=== PATIENT | male | born 1970 | race African-American/Black ===

== ENCOUNTER 2016-09-17 17:01 | Inpatient (IN) | payer OTHER ==
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
[2016-09-17] MEDS ORDERED: MAGNESIUM HYDROX 2400MG/30ML ORAL SUSPENSION 30 ML CUP PO PRN (18:32)
[2016-09-17] MEDS ORDERED: guaiFENesin/D-METHORPHAN HB 10 ML UNIT-DOSE CUPS PO PRN (18:32)
[2016-09-17] MEDS ORDERED: hydrOXYzine PAMOATE 50 MG CAPSULE (FP) PO PRN (18:32)
[2016-09-17] MEDS ORDERED: IBUPROFEN 400 MG TABLET (FP) PO PRN (18:32)
[2016-09-17] MEDS ORDERED: MAG HYDROX/AL HYDROX/SIMETH 30 ML UNIT-DOSE CUP PO PRN (18:32)
[2016-09-17] MEDS ORDERED: ACETAMINOPHEN 325 MG TABLET (FP) PO PRN (18:32)
[2016-09-17] MEDS ORDERED: P-EPHED 60MG/TRIPROLIDI 2.5MG TABLET PO PRN (18:32)
[2016-09-17] MEDS ORDERED: NICOTINE POLACRILEX 2 MG GUM BC PRN (18:32)
[2016-09-17] MEDS ORDERED: NICOTINE 14 MG/24 HOURS TOPICAL PATCH TD PRN (18:32)
[2016-09-17] MEDS ORDERED: MAGNESIUM CITRATE 300 ML BOTTLE PO PRN (18:32)
[2016-09-17] MEDS ORDERED: LOPERAMIDE HCL 2 MG CAPSULE PO PRN (18:32)
[2016-09-17] MEDS ORDERED: chlordiazePOXIDE HCL 25 MG CAPSULE PO PRN (18:32)
[2016-09-17] MEDS ORDERED: MENTHOL/PHENOL 1 EACH UD MM PRN (18:32)
[2016-09-17 18:35] VITALS: BMI 28.0
[2016-09-17] MEDS: THIAMINE HCL 100 MG TABLET (FP) PO SCH (22:40)
[2016-09-17] MEDS: diphenhydrAMINE HCL 50 MG CAPSULE PO PRN (22:41)
[2016-09-17] MEDS: chlordiazePOXIDE HCL 25 MG CAPSULE PO SCH (22:41)
[2016-09-18 05:29] LABS: URINE APPEARANCE CLEAR; URINE BILIRUBIN NEGATIVE (NEGATIVE); URINE BLOOD NEGATIVE (NEGATIVE); URINE COLOR LTYELLOW; URINE GLUCOSE (UA) NEGATIVE (NEGATIVE); URINE KETONE NEGATIVE (NEGATIVE); URINE LEUK ESTERASE NEGATIVE (NEGATIVE); URINE NITRITE NEGATIVE (NEGATIVE); URINE PROTEIN NEGATIVE (NEGATIVE); URINE UROBILINOGEN NEGATIVE E.U./dl (0.2-1.0)
[2016-09-18] MEDS: chlordiazePOXIDE HCL 25 MG CAPSULE PO SCH ×3 (05:37→17:33)
[2016-09-18] MEDS: PRENATAL VITAMINS W/ FOLIC ACID TABLET (FP) PO SCH (10:30)
[2016-09-18 10:36] LABS: MCH 28.7 pg (25.7-33.7); MCHC 33.2 g/dl (32.0-35.9); MEAN CELL VOLUME 86.6 fl (80-96); MEAN PLT VOLUME 8.8 fl (7.5-11.1); PLATELET COUNT 237 K/MM3 (134-434); RDW 13.8 % (11.9-15.9); WHITE BLOOD COUNT 5.7 K/mm3 (4.0-10.0)
--- NOTE | 2016-09-18 11:22 | PN ---
S CIWA - CIWA Score Nausea/Vomitin-Mild Nausea/No Vomiting Muscle Tremors: 2 Anxiety: 3 Agitation: 4-Moderately Restless Paroxysmal Sweats: No Perspiration Orientation: 0-Oriented Tacttile Disturbances: 1-Very Mild Itch/Numbness Auditory Disturbances: 2-Mild Harshness/Frighten Visual Disturbances: 0-None Headache: 2-Mild CIWA-Ar Total Score: 15 BHS Progress Note (SOAP) Objective: 09/18/16 11:21 Laboratory Tests 09/17/16 09/18/16 09/18/16 22:13 08:00 08:00 WBC 5.7 RBC 5.06 Hgb 14.5 Hct 43.8 MCV 86.6 MCHC 33.2 RDW 13.8 Plt Count 237 MPV 8.8 Sodium 139 Potassium 3.9 Chloride 104 Urine Color Ltyellow Urine Appearance Clear Urine pH 5.0 Ur Specific [place] 1.023 Urine Protein Negative Urine Glucose (UA) Negative Urine Ketones Negative Urine Blood Negative Urine Nitrite Negative Urine Bilirubin Negative Urine Urobilinogen Negative Ur Leukocyte Esterase Negative Vital Signs - 24 hr 09/17/16 09/17/16 09/17/16 18:30 18:37 22:08 Temperature 97.4 F L 97.4 F L 97.6 F Pulse Rate 93 H 93 H 73 Respiratory 20 20 18 Rate Blood Pressure 123/66 123/66 122/76 09/18/16 09/18/16 09/18/16 00:26 03:30 06:32 Temperature 97.4 F L Pulse Rate 79 79 Respiratory 18 16 16 Rate Blood Pressure 117/76 09/18/16 09:35 Temperature 96.7 F L Pulse Rate 78 Respiratory 18 Rate Blood Pressure 117/77 Assessment: 09/18/16 11:22 ongoing withdrawal Plan: continue detox protocol
[2016-09-18 11:39] LABS: ALBUMIN 3.5 g/dl (3.4-5.0); ALK PHOS 55 U/L (45-117); ANION GAP 7 (8-16); BILIRUBIN,TOTAL 0.7 mg/dL (0.2-1.0); CALCIUM 9.5 mg/dL (8.5-10.1); CO2 28 mmol/L (21-32); CREATININE 1.1 mg/dL (0.7-1.3); GLUCOSE,RANDOM 85 mg/dL (74-106); SGOT/AST 14 U/L (15-37); SGPT/ALT 21 U/L (12-78); TOT PROT 6.8 g/dl (6.4-8.2)
--- NOTE | 2016-09-18 16:19 | EKG ---
Test Reason : Blood Pressure : / mmHG Vent. Rate : 064 BPM Atrial Rate : 064 BPM P-R Int : 140 ms QRS Dur : 090 ms QT Int : 374 ms P-R-T Axes : 065 070 025 degrees QTc Int : 385 ms NORMAL SINUS RHYTHM NORMAL ECG NO PREVIOUS ECGS AVAILABLE Confirmed by JOMAR MONK MD ([id number]) on 09/18/2016 4:19:32 PM Referred By: Confirmed By:JOMAR MONK MD
[2016-09-18] MEDS: chlordiazePOXIDE 5 MG CAPSULE PO SCH (22:42)
[2016-09-18] MEDS: THIAMINE HCL 100 MG TABLET (FP) PO SCH (22:42)
[2016-09-18] MEDS: diphenhydrAMINE HCL 50 MG CAPSULE PO PRN (22:43)
[2016-09-19] MEDS: chlordiazePOXIDE 5 MG CAPSULE PO SCH ×3 (05:53→17:12)
[2016-09-19] MEDS: PRENATAL VITAMINS W/ FOLIC ACID TABLET (FP) PO SCH (10:44)
--- NOTE | 2016-09-19 14:50 | PN ---
S CIWA - CIWA Score Nausea/Vomitin-Mild Nausea/No Vomiting Muscle Tremors: 3 Anxiety: 4-Mod. Anxious/Guarded Agitation: 4-Moderately Restless Paroxysmal Sweats: No Perspiration Orientation: 0-Oriented Tacttile Disturbances: 0-None Auditory Disturbances: 0-None Visual Disturbances: 0-None Headache: 2-Mild CIWA-Ar Total Score: 14 BHS Progress Note (SOAP) Subjective: Anxious, tremor, sweating, restless Objective: 09/19/16 14:49 Last Vital Signs Temp Pulse Resp BP Pulse Ox 97.0 F L 92 H 20 100/67 09/19/16 13:38 09/19/16 13:38 09/19/16 13:38 09/19/16 13:38 Laboratory Tests 09/17/16 09/18/16 09/18/16 22:13 08:00 08:00 WBC 5.7 RBC 5.06 Hgb 14.5 Hct 43.8 MCV 86.6 MCHC 33.2 RDW 13.8 Plt Count 237 MPV 8.8 Sodium 139 Potassium 3.9 Chloride 104 Carbon Dioxide 28 Anion Gap 7 L BUN 13 Creatinine 1.1 Creat Clearance w eGFR > 60 Random Glucose 85 Calcium 9.5 Total Bilirubin 0.7 AST 14 L ALT 21 D Alkaline Phosphatase 55 Total Protein 6.8 Albumin 3.5 Urine Color Ltyellow Urine Appearance Clear Urine pH 5.0 Ur Specific [place] 1.023 Urine Protein Negative Urine Glucose (UA) Negative Urine Ketones Negative Urine Blood Negative Urine Nitrite Negative Urine Bilirubin Negative Urine Urobilinogen Negative Ur Leukocyte Esterase Negative RPR Titer 09/18/16 08:00 WBC RBC Hgb Hct MCV MCHC RDW Plt Count MPV Sodium Potassium Chloride Carbon Dioxide Anion Gap BUN Creatinine Creat Clearance w eGFR Random Glucose Calcium Total Bilirubin AST ALT Alkaline Phosphatase Total Protein Albumin Urine Color Urine Appearance Urine pH Ur Specific [place] Urine Protein Urine Glucose (UA) Urine Ketones Urine Blood Urine Nitrite Urine Bilirubin Urine Urobilinogen Ur Leukocyte Esterase RPR Titer Nonreactive Labs noted Assessment: 09/19/16 14:50 Withdrawal symptoms Plan: Continue detox
[2016-09-19] MEDS: chlordiazePOXIDE HCL 10 MG CAPSULE PO SCH (22:52)
[2016-09-19] MEDS: THIAMINE HCL 100 MG TABLET (FP) PO SCH (22:52)
[2016-09-19] MEDS: diphenhydrAMINE HCL 50 MG CAPSULE PO PRN (22:54)
[2016-09-20] MEDS: chlordiazePOXIDE HCL 10 MG CAPSULE PO SCH ×3 (05:25→17:34)
[2016-09-20] MEDS: PRENATAL VITAMINS W/ FOLIC ACID TABLET (FP) PO SCH (10:46)
--- NOTE | 2016-09-20 11:40 | PN ---
BHS Progress Note (SOAP) Subjective: SWEATING,INTERRUPTED SLEEP,RESTLESS. Objective: 09/20/16 11:39 Vital Signs - 8 hr 09/20/16 09/20/16 06:39 10:25 Temperature 98.0 F 96.7 F L Pulse Rate 76 78 Respiratory 18 18 Rate Blood Pressure 110/80 123/60 Laboratory Tests 09/17/16 09/18/16 09/18/16 22:13 08:00 08:00 WBC 5.7 RBC 5.06 Hgb 14.5 Hct 43.8 MCV 86.6 MCHC 33.2 RDW 13.8 Plt Count 237 MPV 8.8 Sodium 139 Potassium 3.9 Chloride 104 Carbon Dioxide 28 Anion Gap 7 L BUN 13 Creatinine 1.1 Creat Clearance w eGFR > 60 Random Glucose 85 Calcium 9.5 Total Bilirubin 0.7 AST 14 L ALT 21 D Alkaline Phosphatase 55 Total Protein 6.8 Albumin 3.5 Urine Color Ltyellow Urine Appearance Clear Urine pH 5.0 Ur Specific [place] 1.023 Urine Protein Negative Urine Glucose (UA) Negative Urine Ketones Negative Urine Blood Negative Urine Nitrite Negative Urine Bilirubin Negative Urine Urobilinogen Negative Ur Leukocyte Esterase Negative RPR Titer 09/18/16 08:00 WBC RBC Hgb Hct MCV MCHC RDW Plt Count MPV Sodium Potassium Chloride Carbon Dioxide Anion Gap BUN Creatinine Creat Clearance w eGFR Random Glucose Calcium Total Bilirubin AST ALT Alkaline Phosphatase Total Protein Albumin Urine Color Urine Appearance Urine pH Ur Specific [place] Urine Protein Urine Glucose (UA) Urine Ketones Urine Blood Urine Nitrite Urine Bilirubin Urine Urobilinogen Ur Leukocyte Esterase RPR Titer Nonreactive LABS NOTED Assessment: 09/20/16 11:40 WITHDRAWAL SX. Plan: CONTINUE DETOX
[2016-09-20 11:58] LABS: HIV 1 & 2 AB NEGATIVE; HIV 1 AGp24 NEGATIVE
[2016-09-20] MEDS: diphenhydrAMINE HCL 50 MG CAPSULE PO PRN (22:04)
[2016-09-20] MEDS: THIAMINE HCL 100 MG TABLET (FP) PO SCH (22:04)
[2016-09-21 09:25] VITALS: BP 125/84; PULSE 88; TEMP 95.8
--- NOTE | 2016-09-21 10:56 | DS ---
[facility] Detox Discharge Summary Admission Date: 09/17/16 Discharge Date: 09/21/16 - History Present History: Alcohol Dependence, Cocaine Dependence Pertinent Past History: NARCOLEPSY - Physical Exam Results Vital Signs: Vital Signs Temperature 95.8 F L 09/21/16 09:23 Pulse Rate 88 09/21/16 09:23 Respiratory Rate 18 09/21/16 09:23 Blood Pressure 125/84 09/21/16 09:23 O2 Sat by Pulse Oximetry (%) Pertinent Admission Physical Exam Findings: WITHDRAWAL SX. Laboratory Last Values WBC 5.7 K/mm3 (4.0-10.0) 09/18/16 08:00 RBC 5.06 M/mm3 (4.00-5.60) 09/18/16 08:00 Hgb 14.5 GM/dL (11.7-16.9) 09/18/16 08:00 Hct 43.8 % (35.4-49) 09/18/16 08:00 MCV 86.6 fl (80-96) 09/18/16 08:00 MCHC 33.2 g/dl (32.0-35.9) 09/18/16 08:00 RDW 13.8 % (11.9-15.9) 09/18/16 08:00 Plt Count 237 K/MM3 (134-434) 09/18/16 08:00 MPV 8.8 fl (7.5-11.1) 09/18/16 08:00 Sodium 139 mmol/L (136-145) 09/18/16 08:00 Potassium 3.9 mmol/L (3.5-5.1) 09/18/16 08:00 Chloride 104 mmol/L (98-107) 09/18/16 08:00 Carbon Dioxide 28 mmol/L (21-32) 09/18/16 08:00 Anion Gap 7 (8-16) L 09/18/16 08:00 BUN 13 mg/dL (7-18) 09/18/16 08:00 Creatinine 1.1 mg/dL (0.7-1.3) 09/18/16 08:00 Creat Clearance w eGFR > 60 (>60) 09/18/16 08:00 Random Glucose 85 mg/dL (74-106) 09/18/16 08:00 Calcium 9.5 mg/dL (8.5-10.1) 09/18/16 08:00 Total Bilirubin 0.7 mg/dL (0.2-1.0) 09/18/16 08:00 AST 14 U/L (15-37) L 09/18/16 08:00 ALT 21 U/L (12-78) D 09/18/16 08:00 Alkaline Phosphatase 55 U/L (45-117) 09/18/16 08:00 Total Protein 6.8 g/dl (6.4-8.2) 09/18/16 08:00 Albumin 3.5 g/dl (3.4-5.0) 09/18/16 08:00 Urine Color Ltyellow 09/17/16 22:13 Urine Appearance Clear 09/17/16 22:13 Urine pH 5.0 (5.0-8.0) 09/17/16 22:13 Ur Specific [place] 1.023 (1.001-1.035) 09/17/16 22:13 Urine Protein Negative (NEGATIVE) 09/17/16 22:13 Urine Glucose (UA) Negative (NEGATIVE) 09/17/16 22:13 Urine Ketones Negative (NEGATIVE) 09/17/16 22:13 Urine Blood Negative (NEGATIVE) 09/17/16 22:13 Urine Nitrite Negative (NEGATIVE) 09/17/16 22:13 Urine Bilirubin Negative (NEGATIVE) 09/17/16 22:13 Urine Urobilinogen Negative E.U./dl (0.2-1.0) 09/17/16 22:13 Ur Leukocyte Esterase Negative (NEGATIVE) 09/17/16 22:13 RPR Titer Nonreactive (NONREACTIVE) 09/18/16 08:00 HIV 1&2 Antibody Screen Negative 09/20/16 08:00 HIV P24 Antigen Negative 09/20/16 08:00 LABS NOTED - Treatment Hospital Course: Detox Protocol Followed, Detoxed Safely, Responded well, Discharged Condition Good, Rehab Referral Accepted - Medication Discharge Medications: Ambulatory Orders Armodafinil [Nuvigil] 200 mg PO DAILY 08/12/16 - Diagnosis (1) Alcohol dependence with uncomplicated withdrawal Current Visit: Yes Status: Acute (2) Nicotine dependence Current Visit: Yes Status: Acute Qualifiers: Nicotine product type: cigarettes Substance use status: uncomplicated Qualified Code(s): F17.210 - Nicotine dependence, cigarettes, uncomplicated (3) Cocaine dependence, uncomplicated Current Visit: Yes Status: Acute (4) Narcolepsy Current Visit: Yes Status: Chronic - AMA Did Patient Leave Against Medical Advice: No
== END 2016-09-21 10:51 | disposition home or self-care (01) | DRG 774 ==
LOC: YASAS 17:01 → Y3N 18:33
PROVIDERS: ADMIT Internal Medicine; ATTEND Internal Medicine
PROC: HZ2ZZZZ Detoxification Services for Substance Abuse Treatment (ICD-10-PCS; principal; 2016-09-17)
DX: F10.230 Alcohol dependence with withdrawal, uncomplicated (principal); F14.20 Cocaine dependence, uncomplicated; F17.210 Nicotine dependence, cigarettes, uncomplicated; G47.419 Narcolepsy without cataplexy
CPT/HCPCS: 36415; 80053; 81003; 85027; 86593; 87389; 93005; 93010

== ENCOUNTER 2017-04-16 13:08 | Inpatient (IN) | payer OTHER ==
[2017-04-16 14:27] VITALS: BMI 27.3
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
[2017-04-16] MEDS ORDERED: P-EPHED 60MG/TRIPROLIDI 2.5MG TABLET PO PRN (16:28)
[2017-04-16] MEDS ORDERED: hydrOXYzine PAMOATE 50 MG CAPSULE (FP) PO PRN (16:28)
[2017-04-16] MEDS ORDERED: NICOTINE POLACRILEX 2 MG GUM BC PRN (16:28)
[2017-04-16] MEDS ORDERED: ACETAMINOPHEN 325 MG TABLET (FP) PO PRN (16:28)
[2017-04-16] MEDS ORDERED: chlordiazePOXIDE HCL 25 MG CAPSULE PO ONE (16:28)
[2017-04-16] MEDS ORDERED: MAG HYDROX/AL HYDROX/SIMETH 30 ML UNIT-DOSE CUP PO PRN (16:28)
[2017-04-16] MEDS ORDERED: guaiFENesin/D-METHORPHAN HB 10 ML UNIT-DOSE CUPS PO PRN (16:28)
[2017-04-16] MEDS ORDERED: LOPERAMIDE HCL 2 MG CAPSULE PO PRN (16:28)
[2017-04-16] MEDS ORDERED: MAGNESIUM HYDROX 2400MG/30ML ORAL SUSPENSION 30 ML CUP PO PRN (16:28)
[2017-04-16] MEDS ORDERED: MENTHOL/PHENOL 1 EACH UD MM PRN (16:28)
[2017-04-16] MEDS: chlordiazePOXIDE HCL 25 MG CAPSULE PO SCH ×2 (18:42→22:23)
[2017-04-16] MEDS: NICOTINE 7 MG/24 HOURS TOPICAL PATCH TD SCH (18:44)
[2017-04-16] MEDS: IBUPROFEN 400 MG TABLET (FP) PO PRN (20:54)
[2017-04-16] MEDS: diphenhydrAMINE HCL 50 MG CAPSULE PO PRN (22:23)
[2017-04-16] MEDS: THIAMINE HCL 100 MG TABLET (FP) PO SCH (22:23)
[2017-04-17] MEDS: chlordiazePOXIDE HCL 25 MG CAPSULE PO SCH ×4 (06:22→22:11)
[2017-04-17] MEDS: MAGNESIUM CITRATE 300 ML BOTTLE PO PRN (09:33)
[2017-04-17] MEDS: PRENATAL VITAMINS W/ FOLIC ACID TABLET (FP) PO SCH (10:17)
[2017-04-17] MEDS: NICOTINE 7 MG/24 HOURS TOPICAL PATCH TD SCH (10:18)
[2017-04-17 10:35] LABS: ALBUMIN 3.7 g/dl (3.4-5.0); ANION GAP 10 (8-16); CO2 29 mmol/L (21-32); GLUCOSE,RANDOM 89 mg/dL (74-106); SGOT/AST 15 U/L (15-37); SGPT/ALT 23 U/L (12-78)
[2017-04-17 10:38] LABS: ALK PHOS 58 U/L (45-117); BILIRUBIN,TOTAL 0.5 mg/dL (0.2-1.0); CALCIUM 9.7 mg/dL (8.5-10.1); TOT PROT 7.4 g/dl (6.4-8.2)
[2017-04-17 10:52] LABS: MCH 28.7 pg (25.7-33.7); MEAN CELL VOLUME 87.1 fl (80-96); MEAN PLT VOLUME 8.8 fl (7.5-11.1); PLATELET COUNT 276 K/MM3 (134-434); RDW 13.4 % (11.9-15.9); WHITE BLOOD COUNT 6.2 K/mm3 (4.0-10.0)
[2017-04-17 11:53] LABS: URINE APPEARANCE CLEAR; URINE BILIRUBIN NEGATIVE (NEGATIVE); URINE BLOOD NEGATIVE (NEGATIVE); URINE COLOR LT. YELLOW; URINE GLUCOSE (UA) NEGATIVE (NEGATIVE); URINE KETONE NEGATIVE (NEGATIVE); URINE LEUK ESTERASE NEGATIVE (NEGATIVE); URINE NITRITE NEGATIVE (NEGATIVE); URINE PROTEIN NEGATIVE (NEGATIVE); URINE UROBILINOGEN 0.2 mg/dL (0.2-1.0)
--- NOTE | 2017-04-17 13:56 | EKG ---
Test Reason : Blood Pressure : / mmHG Vent. Rate : 063 BPM Atrial Rate : 063 BPM P-R Int : 144 ms QRS Dur : 084 ms QT Int : 368 ms P-R-T Axes : 067 059 022 degrees QTc Int : 376 ms NORMAL SINUS RHYTHM NORMAL ECG WHEN COMPARED WITH ECG OF 17-SEP-2016 19:19, NO SIGNIFICANT CHANGE WAS FOUND Confirmed by KINGSLEY HOOKS MD ([id number]) on 04/17/2017 1:55:41 PM Referred By: Confirmed By:KINGSLEY HOOKS MD
--- NOTE | 2017-04-17 17:07 | PN ---
[facility] CIWA - CIWA Score Nausea/Vomitin-No Nausea/No Vomiting Muscle Tremors: 3 Anxiety: 4-Mod. Anxious/Guarded Agitation: 4-Moderately Restless Paroxysmal Sweats: 3 Orientation: 0-Oriented Tacttile Disturbances: 0-None Auditory Disturbances: 0-None Visual Disturbances: 0-None Headache: 0-None Present CIWA-Ar Total Score: 14 BHS Progress Note (SOAP) Subjective: Anxiety,sweating,tremors,restless(pacing),interrupted sleep Objective: 04/17/17 17:06 Vital Signs - 8 hr 04/17/17 04/17/17 10:00 14:40 Temperature 97.0 F L 95.9 F L Pulse Rate 101 H 91 H Respiratory 18 20 Rate Blood Pressure 116/54 135/74 Laboratory Last Values WBC 6.2 K/mm3 (4.0-10.0) 04/17/17 08:00 RBC 5.40 M/mm3 (4.00-5.60) 04/17/17 08:00 Hgb 15.5 GM/dL (11.7-16.9) 04/17/17 08:00 Hct 47.1 % (35.4-49) 04/17/17 08:00 MCV 87.1 fl (80-96) 04/17/17 08:00 MCH 28.7 pg (25.7-33.7) 04/17/17 08:00 MCHC 33.0 g/dl (32.0-35.9) 04/17/17 08:00 RDW 13.4 % (11.9-15.9) 04/17/17 08:00 Plt Count 276 K/MM3 (134-434) 04/17/17 08:00 MPV 8.8 fl (7.5-11.1) 04/17/17 08:00 Sodium 140 mmol/L (136-145) 04/17/17 08:00 Potassium 4.1 mmol/L (3.5-5.1) 04/17/17 08:00 Chloride 101 mmol/L (98-107) 04/17/17 08:00 Carbon Dioxide 29 mmol/L (21-32) 04/17/17 08:00 Anion Gap 10 (8-16) 04/17/17 08:00 BUN 13 mg/dL (7-18) 04/17/17 08:00 Creatinine 1.0 mg/dL (0.7-1.3) 04/17/17 08:00 Creat Clearance w eGFR > 60 (>60) 04/17/17 08:00 Random Glucose 89 mg/dL (74-106) 04/17/17 08:00 Calcium 9.7 mg/dL (8.5-10.1) 04/17/17 08:00 Total Bilirubin 0.5 mg/dL (0.2-1.0) D 04/17/17 08:00 AST 15 U/L (15-37) 04/17/17 08:00 ALT 23 U/L (12-78) 04/17/17 08:00 Alkaline Phosphatase 58 U/L (45-117) 04/17/17 08:00 Total Protein 7.4 g/dl (6.4-8.2) 04/17/17 08:00 Albumin 3.7 g/dl (3.4-5.0) 04/17/17 08:00 Urine Color Lt. yellow 04/17/17 09:20 Urine Appearance Clear 04/17/17 09:20 Urine pH 6.0 (5.0-8.0) 04/17/17 09:20 Urine Protein Negative (NEGATIVE) 04/17/17 09:20 Urine Glucose (UA) Negative (NEGATIVE) 04/17/17 09:20 Urine Ketones Negative (NEGATIVE) 04/17/17 09:20 Urine Blood Negative (NEGATIVE) 04/17/17 09:20 Urine Nitrite Negative (NEGATIVE) 04/17/17 09:20 Urine Bilirubin Negative (NEGATIVE) 04/17/17 09:20 Urine Urobilinogen 0.2 mg/dL (0.2-1.0) 04/17/17 09:20 Ur Leukocyte Esterase Negative (NEGATIVE) 04/17/17 09:20 RPR Titer Nonreactive (NONREACTIVE) 04/17/17 08:00 labs noted Assessment: 04/17/17 17:06 Withdrawal sx. Plan: Continue detox
[2017-04-17] MEDS: IBUPROFEN 400 MG TABLET (FP) PO PRN (17:59)
[2017-04-17] MEDS: diphenhydrAMINE HCL 50 MG CAPSULE PO PRN (22:11)
[2017-04-17] MEDS: THIAMINE HCL 100 MG TABLET (FP) PO SCH (22:49)
[2017-04-18] MEDS: chlordiazePOXIDE HCL 25 MG CAPSULE PO PRN ×2 (02:05→19:57)
[2017-04-18] MEDS: chlordiazePOXIDE HCL 25 MG CAPSULE PO SCH ×2 (05:15→10:13)
[2017-04-18] MEDS: NICOTINE 7 MG/24 HOURS TOPICAL PATCH TD SCH (10:12)
[2017-04-18] MEDS: PRENATAL VITAMINS W/ FOLIC ACID TABLET (FP) PO SCH (10:13)
[2017-04-18] MEDS: MAGNESIUM CITRATE 300 ML BOTTLE PO PRN (10:14)
--- NOTE | 2017-04-18 10:16 | PN ---
[facility] CIWA - CIWA Score Nausea/Vomitin-No Nausea/No Vomiting Muscle Tremors: 3 Anxiety: 2 Agitation: 3 Paroxysmal Sweats: 3 Orientation: 0-Oriented Tacttile Disturbances: 0-None Auditory Disturbances: 0-None Visual Disturbances: 0-None Headache: 0-None Present CIWA-Ar Total Score: 11 [facility] Progress Note (SOAP) Subjective: sweats agitation irritable constipation Objective: 04/18/17 10:15 Vital Signs Temperature 96.4 F L 04/18/17 10:15 Pulse Rate 90 04/18/17 10:15 Respiratory Rate 18 04/18/17 10:15 Blood Pressure 107/71 04/18/17 10:15 O2 Sat by Pulse Oximetry (%) Laboratory Tests 04/17/17 04/17/17 04/17/17 08:00 08:00 08:00 WBC 6.2 RBC 5.40 Hgb 15.5 Hct 47.1 MCV 87.1 MCH 28.7 MCHC 33.0 RDW 13.4 Plt Count 276 MPV 8.8 Sodium 140 Potassium 4.1 Chloride 101 Carbon Dioxide 29 Anion Gap 10 BUN 13 Creatinine 1.0 Creat Clearance w eGFR > 60 Random Glucose 89 Calcium 9.7 Total Bilirubin 0.5 D AST 15 ALT 23 Alkaline Phosphatase 58 Total Protein 7.4 Albumin 3.7 Urine Color Urine Appearance Urine pH Ur Specific [place] Urine Protein Urine Glucose (UA) Urine Ketones Urine Blood Urine Nitrite Urine Bilirubin Urine Urobilinogen Ur Leukocyte Esterase RPR Titer Nonreactive 04/17/17 09:20 WBC RBC Hgb Hct MCV MCH MCHC RDW Plt Count MPV Sodium Potassium Chloride Carbon Dioxide Anion Gap BUN Creatinine Creat Clearance w eGFR Random Glucose Calcium Total Bilirubin AST ALT Alkaline Phosphatase Total Protein Albumin Urine Color Lt. yellow Urine Appearance Clear Urine pH 6.0 Ur Specific [place] 1.020 Urine Protein Negative Urine Glucose (UA) Negative Urine Ketones Negative Urine Blood Negative Urine Nitrite Negative Urine Bilirubin Negative Urine Urobilinogen 0.2 Ur Leukocyte Esterase Negative RPR Titer awake/alert ambulating no acute distress Assessment: 04/18/17 10:15 mild withdrawal sx Plan: continue detox increase fluids mom/citroma prn
[2017-04-18] MEDS: IBUPROFEN 400 MG TABLET (FP) PO PRN (15:34)
[2017-04-18] MEDS: chlordiazePOXIDE 5 MG CAPSULE PO SCH ×2 (17:40→22:09)
[2017-04-18] MEDS: THIAMINE HCL 100 MG TABLET (FP) PO SCH (22:09)
[2017-04-18] MEDS: diphenhydrAMINE HCL 50 MG CAPSULE PO PRN (22:10)
[2017-04-19] MEDS: chlordiazePOXIDE 5 MG CAPSULE PO SCH ×2 (05:36→10:14)
[2017-04-19] MEDS: IBUPROFEN 400 MG TABLET (FP) PO PRN (09:21)
--- NOTE | 2017-04-19 09:41 | PN ---
BHS Progress Note (SOAP) Subjective: feeling better anxious Objective: 04/19/17 09:39 Vital Signs Temperature 96.6 04/19/17 10:00 Pulse Rate 80 04/19/17 10:00 Respiratory Rate 18 04/19/17 10:00 Blood Pressure 119/71 04/19/17 10:00 O2 Sat by Pulse Oximetry (%) awake/alert ambulating no acute distress Assessment: 04/19/17 09:40 mild withdrawals Plan: continue detox increase fluids d/c in am
[2017-04-19] MEDS: NICOTINE 7 MG/24 HOURS TOPICAL PATCH TD SCH (10:13)
[2017-04-19] MEDS: PRENATAL VITAMINS W/ FOLIC ACID TABLET (FP) PO SCH (10:13)
[2017-04-19] MEDS: chlordiazePOXIDE HCL 10 MG CAPSULE PO SCH ×2 (17:14→22:16)
[2017-04-19] MEDS: THIAMINE HCL 100 MG TABLET (FP) PO SCH (22:16)
[2017-04-19] MEDS: diphenhydrAMINE HCL 50 MG CAPSULE PO PRN (22:16)
[2017-04-20] MEDS: chlordiazePOXIDE HCL 10 MG CAPSULE PO SCH (05:43)
[2017-04-20 06:20] VITALS: BP 116/70; PULSE 81; TEMP 97.7
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
[2017-04-20] MEDS: PRENATAL VITAMINS W/ FOLIC ACID TABLET (FP) PO SCH (09:20)
== END 2017-04-20 09:38 | disposition home or self-care (01) | DRG 774 ==
LOC: YASAS 13:08 → Y6N 17:12
PROVIDERS: ADMIT Internal Medicine; ATTEND Internal Medicine
PROC: HZ2ZZZZ Detoxification Services for Substance Abuse Treatment (ICD-10-PCS; principal; 2017-04-16)
DX: F10.230 Alcohol dependence with withdrawal, uncomplicated (principal); F14.20 Cocaine dependence, uncomplicated; F17.210 Nicotine dependence, cigarettes, uncomplicated; M54.5 Low back pain; G89.29 Other chronic pain; G47.419 Narcolepsy without cataplexy; Z87.828 Personal history of other (healed) physical injury and trauma; Z86.69 Personal history of other diseases of the nervous system and sense organs
CPT/HCPCS: 36415; 80053; 81003; 85027; 86593; 93005; 93010

== ENCOUNTER 2018-01-15 11:27 | Inpatient (IN) | payer OTHER ==
[2018-01-15 14:18] VITALS: BMI 25.9
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
[2018-01-15] MEDS ORDERED: MAGNESIUM CITRATE 300 ML BOTTLE PO PRN (15:15)
[2018-01-15] MEDS ORDERED: P-EPHED 60MG/TRIPROLIDI 2.5MG TABLET PO PRN (15:15)
[2018-01-15] MEDS ORDERED: MENTHOL/PHENOL 1 EACH UD MM PRN (15:15)
[2018-01-15] MEDS ORDERED: LOPERAMIDE HCL 2 MG CAPSULE PO PRN (15:15)
[2018-01-15] MEDS ORDERED: chlordiazePOXIDE HCL 25 MG CAPSULE PO PRN (15:15)
[2018-01-15] MEDS ORDERED: chlordiazePOXIDE HCL 25 MG CAPSULE PO ONE (15:15)
[2018-01-15] MEDS ORDERED: hydrOXYzine PAMOATE 50 MG CAPSULE (FP) PO PRN (15:15)
[2018-01-15] MEDS ORDERED: MAGNESIUM HYDROX 2400MG/30ML ORAL SUSPENSION 30 ML CUP PO PRN (15:15)
[2018-01-15] MEDS ORDERED: guaiFENesin/D-METHORPHAN HB 10 ML UNIT-DOSE CUPS PO PRN (15:15)
[2018-01-15] MEDS ORDERED: MAG HYDROX/AL HYDROX/SIMETH 30 ML UNIT-DOSE CUP PO PRN (15:15)
[2018-01-15] MEDS ORDERED: ACETAMINOPHEN 325 MG TABLET (FP) PO PRN (15:15)
[2018-01-15] MEDS: IBUPROFEN 400 MG TABLET (FP) PO PRN (15:54)
[2018-01-15] MEDS: chlordiazePOXIDE HCL 25 MG CAPSULE PO SCH ×2 (17:46→22:41)
[2018-01-15 18:13] LABS: URINE APPEARANCE CLEAR; URINE BILIRUBIN NEGATIVE (<2.0 mg/dL); URINE COLOR YELLOW; URINE GLUCOSE (UA) NEGATIVE (NEGATIVE); URINE KETONE NEGATIVE (NEGATIVE); URINE LEUK ESTERASE NEGATIVE (NEGATIVE); URINE NITRITE NEGATIVE (NEGATIVE); URINE PROTEIN NEGATIVE (NEGATIVE)
[2018-01-15] MEDS ORDERED: MELATONIN 5 MG TABLETS PO PRN (22:00)
[2018-01-15] MEDS ORDERED: TAMSULOSIN HCL 0.4 MG CAP.ER.24H (FP) PO SCH (22:00)
[2018-01-15] MEDS: THIAMINE HCL 100 MG TABLET (FP) PO SCH (22:41)
[2018-01-16] MEDS: chlordiazePOXIDE HCL 25 MG CAPSULE PO SCH ×4 (05:20→22:05)
[2018-01-16] MEDS: OXYBUTYNIN CHLORIDE 5 MG TABLET PO SCH (07:42)
[2018-01-16 10:02] LABS: HEMOGLOBIN 14.2 GM/dL (11.7-16.9); MCH 29.4 pg (25.7-33.7); MCHC 33.9 g/dl (32.0-35.9); MEAN CELL VOLUME 86.9 fl (80-96); MEAN PLT VOLUME 8.6 fl (7.5-11.1); PLATELET COUNT 262 K/MM3 (134-434); RBC 4.84 M/mm3 (4.00-5.60); RDW 13.6 % (11.9-15.9); WHITE BLOOD COUNT 5.9 K/mm3 (4.0-10.0)
[2018-01-16 10:08] LABS: ALBUMIN 3.2 g/dl (3.4-5.0); ANION GAP 5 (8-16); BILIRUBIN,TOTAL 0.5 mg/dL (0.2-1.0); BLOOD UREA NITROGEN 17 mg/dL (7-18); CALCIUM 8.6 mg/dL (8.5-10.1); CHLORIDE 107 mmol/L (98-107); CO2 29 mmol/L (21-32); CREATININE 1.2 mg/dL (0.7-1.3); GLUCOSE,RANDOM 94 mg/dL (74-106); POTASSIUM 4.4 mmol/L (3.5-5.1); SGOT/AST 14 U/L (15-37); SGPT/ALT 17 U/L (12-78); SODIUM 141 mmol/L (136-145); TOT PROT 6.8 g/dl (6.4-8.2)
[2018-01-16 10:09] LABS: ALK PHOS 61 U/L (45-117)
[2018-01-16] MEDS: PRENATAL VITAMINS W/ FOLIC ACID TABLET (FP) PO SCH (10:24)
[2018-01-16] MEDS: IBUPROFEN 400 MG TABLET (FP) PO PRN ×2 (10:26→17:58)
--- NOTE | 2018-01-16 11:10 | EKG ---
Test Reason : Blood Pressure : / mmHG Vent. Rate : 066 BPM Atrial Rate : 066 BPM P-R Int : 146 ms QRS Dur : 090 ms QT Int : 390 ms P-R-T Axes : 075 072 034 degrees QTc Int : 408 ms NORMAL SINUS RHYTHM WITH SINUS ARRHYTHMIA NORMAL ECG WHEN COMPARED WITH ECG OF 06-DEC-2017 00:51, PREMATURE ATRIAL COMPLEXES ARE NO LONGER PRESENT Confirmed by JESUS VILLARREAL MD ([id number]) on 01/16/2018 11:10:00 AM Referred By: Confirmed By:JESUS VILLARREAL MD
--- NOTE | 2018-01-16 13:32 | PN ---
S CIWA - CIWA Score Nausea/Vomitin-No Nausea/No Vomiting Muscle Tremors: 4-Moderate,w/Arms Extend Anxiety: 4-Mod. Anxious/Guarded Agitation: 4-Moderately Restless Paroxysmal Sweats: 1-Minimal Palms Moist Orientation: 0-Oriented Tacttile Disturbances: 0-None Auditory Disturbances: 0-None Visual Disturbances: 0-None Headache: 0-None Present CIWA-Ar Total Score: 13 BHS Progress Note (SOAP) Subjective: ANXIETY,SWEATS,IRRITABILITY. ALERT O X 3. PT IS OOB AMBULATING WITH STEADY GAIT. Objective: 01/16/18 13:31 Vital Signs 01/16/18 01/16/18 06:12 09:07 Temperature 98.4 F 98.3 F Pulse Rate 99 H 84 Respiratory 18 18 Rate Blood Pressure 114/69 117/70 Laboratory Tests 01/15/18 01/16/18 01/16/18 14:00 07:00 07:00 WBC 5.9 RBC 4.84 Hgb 14.2 Hct 42.0 MCV 86.9 MCH 29.4 MCHC 33.9 RDW 13.6 Plt Count 262 MPV 8.6 Sodium 141 Potassium 4.4 Chloride 107 Carbon Dioxide 29 Anion Gap 5 L BUN 17 D Creatinine 1.2 Creat Clearance w eGFR > 60 Random Glucose 94 Calcium 8.6 Total Bilirubin 0.5 D AST 14 L ALT 17 Alkaline Phosphatase 61 Total Protein 6.8 Albumin 3.2 L Urine Color Yellow Urine Appearance Clear Urine pH 5.0 Ur Specific [place] 1.020 Urine Protein Negative Urine Glucose (UA) Negative Urine Ketones Negative Urine Blood Negative Urine Nitrite Negative Urine Bilirubin Negative Urine Urobilinogen 2.0 Ur Leukocyte Esterase Negative Assessment: 01/16/18 13:31 WITHDRAWAL SX Plan: CONTINUE DETOX
[2018-01-16] MEDS ORDERED: TAMSULOSIN HCL 0.4 MG CAP.ER.24H (FP) PO SCH (18:00)
[2018-01-16] MEDS: TAMSULOSIN HCL 0.4 MG CAP.ER.24H (FP) PO SCH (22:05)
[2018-01-16] MEDS: THIAMINE HCL 100 MG TABLET (FP) PO SCH (22:05)
[2018-01-17] MEDS: chlordiazePOXIDE HCL 25 MG CAPSULE PO SCH ×2 (05:42→10:12)
[2018-01-17] MEDS: OXYBUTYNIN CHLORIDE 5 MG TABLET PO SCH (05:42)
[2018-01-17] MEDS: IBUPROFEN 400 MG TABLET (FP) PO PRN ×2 (05:44→17:18)
[2018-01-17] MEDS: PRENATAL VITAMINS W/ FOLIC ACID TABLET (FP) PO SCH (10:12)
--- NOTE | 2018-01-17 12:17 | PN ---
S CIWA - CIWA Score Nausea/Vomitin-No Nausea/No Vomiting Muscle Tremors: 4-Moderate,w/Arms Extend Anxiety: 5 Agitation: 4-Moderately Restless Paroxysmal Sweats: 1-Minimal Palms Moist Orientation: 0-Oriented Tacttile Disturbances: 0-None Auditory Disturbances: 0-None Visual Disturbances: 0-None Headache: 0-None Present CIWA-Ar Total Score: 14 BHS Progress Note (SOAP) Subjective: ANXIETY,CHILLS,IRRITABILITY. PT OOB AMBULATING ON THE UNIT. ALERT O X 3. NAD. REQUESTING FOR ENSURE AT MEDICATION TIME. Objective: 01/17/18 12:10 Vital Signs 01/17/18 01/17/18 06:11 09:07 Temperature 96.5 F L 97.2 F L Pulse Rate 75 101 H Respiratory 16 18 Rate Blood Pressure 115/67 102/59 Assessment: 01/17/18 12:17 WITHDRAWAL SX Plan: CONTINUE DETOX ENSURE BID PRN
[2018-01-17] MEDS: chlordiazePOXIDE 5 MG CAPSULE PO SCH ×2 (17:15→22:10)
[2018-01-17] MEDS: TAMSULOSIN HCL 0.4 MG CAP.ER.24H (FP) PO SCH (22:10)
[2018-01-17] MEDS: THIAMINE HCL 100 MG TABLET (FP) PO SCH (22:10)
[2018-01-18] MEDS: chlordiazePOXIDE 5 MG CAPSULE PO SCH ×2 (05:48→10:46)
[2018-01-18] MEDS: OXYBUTYNIN CHLORIDE 5 MG TABLET PO SCH (05:49)
[2018-01-18] MEDS: PRENATAL VITAMINS W/ FOLIC ACID TABLET (FP) PO SCH (10:46)
--- NOTE | 2018-01-18 12:29 | PN ---
BHS Progress Note (SOAP) Subjective: PT OOB ON THE UNIT WITH STEADY GAIT. ALERT O X 3. ANXIETY, SLIGHT AGITATIONS. Objective: 01/18/18 12:26 Vital Signs 01/18/18 01/18/18 06:22 09:50 Temperature 97.1 F L 96.4 F L Pulse Rate 82 118 H Respiratory 18 18 Rate Blood Pressure 133/80 90/61 Laboratory Tests 01/15/18 01/16/18 01/16/18 14:00 07:00 07:00 WBC 5.9 RBC 4.84 Hgb 14.2 Hct 42.0 MCV 86.9 MCH 29.4 MCHC 33.9 RDW 13.6 Plt Count 262 MPV 8.6 Sodium Potassium Chloride Carbon Dioxide Anion Gap BUN Creatinine Creat Clearance w eGFR Random Glucose Calcium Total Bilirubin AST ALT Alkaline Phosphatase Total Protein Albumin Urine Color Yellow Urine Appearance Clear Urine pH 5.0 Ur Specific [place] 1.020 Urine Protein Negative Urine Glucose (UA) Negative Urine Ketones Negative Urine Blood Negative Urine Nitrite Negative Urine Bilirubin Negative Urine Urobilinogen 2.0 Ur Leukocyte Esterase Negative RPR Titer HIV 1&2 Antibody Screen Negative HIV P24 Antigen Negative 01/16/18 01/16/18 07:00 07:00 WBC RBC Hgb Hct MCV MCH MCHC RDW Plt Count MPV Sodium 141 Potassium 4.4 Chloride 107 Carbon Dioxide 29 Anion Gap 5 L BUN 17 D Creatinine 1.2 Creat Clearance w eGFR > 60 Random Glucose 94 Calcium 8.6 Total Bilirubin 0.5 D AST 14 L ALT 17 Alkaline Phosphatase 61 Total Protein 6.8 Albumin 3.2 L Urine Color Urine Appearance Urine pH Ur Specific [place] Urine Protein Urine Glucose (UA) Urine Ketones Urine Blood Urine Nitrite Urine Bilirubin Urine Urobilinogen Ur Leukocyte Esterase RPR Titer Nonreactive HIV 1&2 Antibody Screen HIV P24 Antigen Assessment: 01/18/18 12:26 WITHDRAWAL SX Plan: CONTINUE DETOX
[2018-01-18] MEDS: IBUPROFEN 400 MG TABLET (FP) PO PRN (17:55)
[2018-01-18] MEDS: chlordiazePOXIDE HCL 10 MG CAPSULE PO SCH ×2 (17:55→22:16)
[2018-01-18] MEDS: TAMSULOSIN HCL 0.4 MG CAP.ER.24H (FP) PO SCH (22:16)
[2018-01-18] MEDS: THIAMINE HCL 100 MG TABLET (FP) PO SCH (22:16)
[2018-01-19 06:21] VITALS: TEMP 97.4
[2018-01-19] MEDS: chlordiazePOXIDE HCL 10 MG CAPSULE PO SCH (07:34)
[2018-01-19] MEDS: OXYBUTYNIN CHLORIDE 5 MG TABLET PO SCH (07:35)
--- NOTE | 2018-01-19 09:12 | PN ---
BHS Progress Note (SOAP) Subjective: DETOX COMPLETED. ALERT O X 3. NAD PT IS DISCHARGING HOME TODAY STATES HE IS GOING BACK TO WORK. Objective: 01/19/18 09:07 Vital Signs 01/19/18 01/19/18 01/19/18 03:30 06:20 06:30 Temperature 97.4 F L Pulse Rate 74 Respiratory 18 18 18 Rate Blood Pressure 120/63 Laboratory Tests 01/15/18 01/16/18 01/16/18 14:00 07:00 07:00 WBC 5.9 RBC 4.84 Hgb 14.2 Hct 42.0 MCV 86.9 MCH 29.4 MCHC 33.9 RDW 13.6 Plt Count 262 MPV 8.6 Sodium Potassium Chloride Carbon Dioxide Anion Gap BUN Creatinine Creat Clearance w eGFR Random Glucose Calcium Total Bilirubin AST ALT Alkaline Phosphatase Total Protein Albumin Urine Color Yellow Urine Appearance Clear Urine pH 5.0 Ur Specific [place] 1.020 Urine Protein Negative Urine Glucose (UA) Negative Urine Ketones Negative Urine Blood Negative Urine Nitrite Negative Urine Bilirubin Negative Urine Urobilinogen 2.0 Ur Leukocyte Esterase Negative RPR Titer HIV 1&2 Antibody Screen Negative HIV P24 Antigen Negative 01/16/18 01/16/18 07:00 07:00 WBC RBC Hgb Hct MCV MCH MCHC RDW Plt Count MPV Sodium 141 Potassium 4.4 Chloride 107 Carbon Dioxide 29 Anion Gap 5 L BUN 17 D Creatinine 1.2 Creat Clearance w eGFR > 60 Random Glucose 94 Calcium 8.6 Total Bilirubin 0.5 D AST 14 L ALT 17 Alkaline Phosphatase 61 Total Protein 6.8 Albumin 3.2 L Urine Color Urine Appearance Urine pH Ur Specific [place] Urine Protein Urine Glucose (UA) Urine Ketones Urine Blood Urine Nitrite Urine Bilirubin Urine Urobilinogen Ur Leukocyte Esterase RPR Titer Nonreactive HIV 1&2 Antibody Screen HIV P24 Antigen Assessment: 01/19/18 09:07 MEDICALLY STABLE Plan: D/C PT TODAY FOLLOW UP WITH REHAB AFTERCARE PLANNED.
--- NOTE | 2018-01-19 09:24 | DS ---
[facility] Detox Discharge Summary Admission Date: 01/15/18 Discharge Date: 01/19/18 - History Present History: Alcohol Dependence, Cocaine Dependence Additional Comments: DETOX COMPLETED. ALERT O X 3. NAD. PT REPORTS HE HAS PCP WITH DR. CASTANEDA AT [place], [place]. Pertinent Past History: PLEASE SEE DX BELOW - Physical Exam Results Vital Signs: Vital Signs Temperature 97.4 F L 01/19/18 06:20 Pulse Rate 74 01/19/18 06:20 Respiratory Rate 18 01/19/18 06:30 Blood Pressure 120/63 01/19/18 06:20 O2 Sat by Pulse Oximetry (%) Pertinent Admission Physical Exam Findings: WITHDRAWAL SX - Treatment Hospital Course: Detox Protocol Followed, Detoxed Safely, Responded well, Discharged Condition Good - Medication Discharge Medications: Ambulatory Orders Armodafinil [Nuvigil] 200 mg PO DAILY 08/12/16 Oxybutynin Chloride [Ditropan -] 5 mg PO DAILY@1000 tablet 12/08/17 Tamsulosin HCl [Flomax -] 0.4 mg PO HS cap.er.24h 12/08/17 - Diagnosis (1) Weight loss Current Visit: Yes Status: Acute (2) Alcohol dependence with uncomplicated withdrawal Current Visit: Yes Status: Acute (3) BPH (benign prostatic hyperplasia) Current Visit: Yes Status: Chronic Qualifiers: Lower urinary tract symptom detail: unspecified (4) Nicotine dependence Current Visit: Yes Status: Acute Qualifiers: Nicotine product type: cigarettes Substance use status: in withdrawal Qualified Code(s): F17.213 - Nicotine dependence, cigarettes, with withdrawal (5) Cocaine dependence, uncomplicated Current Visit: Yes Status: Acute (6) Low back pain Current Visit: Yes Status: Chronic Qualifiers: Chronicity: chronic Back pain laterality: unspecified (7) History of seizure disorder Current Visit: Yes Status: Suspected (8) Narcolepsy Current Visit: Yes Status: Suspected - AMA Did Patient Leave Against Medical Advice: No
[2018-01-19 09:34] VITALS: BP 123/71; PULSE 112
[2018-01-19] MEDS: PRENATAL VITAMINS W/ FOLIC ACID TABLET (FP) PO SCH (10:19)
== END 2018-01-19 10:25 | disposition home or self-care (01) | DRG 774 ==
LOC: YASAS 11:27 → Y3N 15:04
PROVIDERS: ADMIT Internal Medicine; ATTEND Internal Medicine
PROC: HZ2ZZZZ Detoxification Services for Substance Abuse Treatment (ICD-10-PCS; principal; 2018-01-15)
DX: F10.230 Alcohol dependence with withdrawal, uncomplicated (principal); F14.20 Cocaine dependence, uncomplicated; F17.213 Nicotine dependence, cigarettes, with withdrawal; N40.0 Benign prostatic hyperplasia without lower urinary tract symptoms; M54.5 Low back pain; G89.29 Other chronic pain; G47.419 Narcolepsy without cataplexy; Z86.69 Personal history of other diseases of the nervous system and sense organs; Z87.898 Personal history of other specified conditions
CPT/HCPCS: 36415; 80053; 81003; 85027; 86593; 87389; 93005; 93010

== ENCOUNTER 2018-09-19 14:10 | Inpatient (IN) | payer OTHER ==
[2018-09-19 15:15] VITALS: BMI 20.2
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
[2018-09-19] MEDS ORDERED: hydrOXYzine PAMOATE 50 MG CAPSULE (FP) PO PRN (17:44)
[2018-09-19] MEDS ORDERED: IBUPROFEN 400 MG TABLET (FP) PO PRN (17:44)
[2018-09-19] MEDS ORDERED: LOPERAMIDE HCL 2 MG CAPSULE PO PRN (17:44)
[2018-09-19] MEDS ORDERED: NICOTINE POLACRILEX 4 MG GUM BC PRN (17:44)
[2018-09-19] MEDS ORDERED: P-EPHED 60MG/TRIPROLIDI 2.5MG TABLET PO PRN (17:44)
[2018-09-19] MEDS ORDERED: ACETAMINOPHEN 325 MG TABLET (FP) PO PRN (17:44)
[2018-09-19] MEDS ORDERED: MAG HYDROX/AL HYDROX/SIMETH 30 ML UNIT-DOSE CUP PO PRN (17:44)
[2018-09-19] MEDS ORDERED: MAGNESIUM CITRATE 300 ML BOTTLE PO PRN (17:44)
[2018-09-19] MEDS ORDERED: MAGNESIUM HYDROX 2400MG/30ML ORAL SUSPENSION 30 ML CUP PO PRN (17:44)
[2018-09-19] MEDS ORDERED: guaiFENesin/D-METHORPHAN HB 10 ML UNIT-DOSE CUPS PO PRN (17:44)
[2018-09-19] MEDS ORDERED: chlordiazePOXIDE HCL 25 MG CAPSULE PO ONE (18:30)
[2018-09-19] MEDS ORDERED: MELATONIN 5 MG TABLETS PO PRN (22:00)
[2018-09-19] MEDS: chlordiazePOXIDE HCL 25 MG CAPSULE PO SCH (22:22)
[2018-09-19] MEDS: THIAMINE HCL 100 MG TABLET (FP) PO SCH (22:22)
[2018-09-19] MEDS: TAMSULOSIN HCL 0.4 MG CAP PO SCH (22:24)
[2018-09-20] MEDS: chlordiazePOXIDE HCL 25 MG CAPSULE PO SCH ×4 (05:18→22:18)
[2018-09-20] MEDS ORDERED: OXYBUTYNIN CHLORIDE 5 MG TABLET PO SCH (10:00)
[2018-09-20 10:26] LABS: ALBUMIN 3.3 g/dl (3.4-5.0); ALK PHOS 61 U/L (45-117); ANION GAP 8 MMOL/L (8-16); BILIRUBIN,TOTAL 0.6 mg/dL (0.2-1); BLOOD UREA NITROGEN 12 mg/dL (7-18); CALCIUM 8.8 mg/dL (8.5-10.1); CHLORIDE 106 mmol/L (98-107); CO2 26 mmol/L (21-32); GLUCOSE,RANDOM 85 mg/dL (74-106); SGOT/AST 12 U/L (15-37); SGPT/ALT 17 U/L (13-61); SODIUM 140 mmol/L (136-145); TOT PROT 6.6 g/dl (6.4-8.2)
[2018-09-20 10:28] LABS: HEMATOCRIT 40.9 % (35.4-49); HEMOGLOBIN 13.8 GM/dL (11.7-16.9); MCH 29.8 pg (25.7-33.7); MCHC 33.8 g/dl (32.0-35.9); MEAN CELL VOLUME 88.1 fl (80-96); MEAN PLT VOLUME 8.6 fl (7.5-11.1); PLATELET COUNT 226 K/MM3 (134-434); RBC 4.65 M/mm3 (4.00-5.60); RDW 13.3 % (11.9-15.9); WHITE BLOOD COUNT 6.1 K/mm3 (4.0-10.0)
[2018-09-20] MEDS: NICOTINE 21 MG/24 HOURS TOPICAL PATCH TD SCH (10:43)
[2018-09-20] MEDS: PRENATAL VITAMINS W/ FOLIC ACID TABLET (FP) PO SCH (10:43)
--- NOTE | 2018-09-20 11:10 | PN ---
S CIWA - CIWA Score Nausea/Vomitin-No Nausea/No Vomiting Muscle Tremors: 3 Anxiety: 3 Agitation: 3 Paroxysmal Sweats: 3 Orientation: 0-Oriented Tacttile Disturbances: 0-None Auditory Disturbances: 0-None Visual Disturbances: 0-None Headache: 0-None Present CIWA-Ar Total Score: 12 S Progress Note (SOAP) Subjective: agitation sweats shakes interrupted sleep Objective: 09/20/18 11:09 Vital Signs Temperature 97.8 F 09/20/18 11:08 Pulse Rate 90 09/20/18 11:08 Respiratory Rate 18 09/20/18 11:08 Blood Pressure 118/69 09/20/18 11:08 O2 Sat by Pulse Oximetry (%) Laboratory Tests 09/20/18 09/20/18 09/20/18 07:00 07:00 08:00 WBC 6.1 RBC 4.65 Hgb 13.8 Hct 40.9 MCV 88.1 MCH 29.8 MCHC 33.8 RDW 13.3 Plt Count 226 MPV 8.6 Sodium 140 Potassium 4.0 Chloride 106 Carbon Dioxide 26 Anion Gap 8 BUN 12 Creatinine 1.0 Creat Clearance w eGFR > 60 Random Glucose 85 Calcium 8.8 Total Bilirubin 0.6 AST 12 L ALT 17 Alkaline Phosphatase 61 Total Protein 6.6 Albumin 3.3 L HIV 1&2 Antibody Screen Negative HIV P24 Antigen Negative aaox3 ambulating no acute distress Assessment: 09/20/18 11:09 withdrawal sx Plan: continue detox increase fluids
[2018-09-20] MEDS: TAMSULOSIN HCL 0.4 MG CAP PO SCH (22:18)
[2018-09-20] MEDS: THIAMINE HCL 100 MG TABLET (FP) PO SCH (22:18)
[2018-09-20] MEDS: MENTHOL/PHENOL 1 EACH UD MM PRN (23:55)
[2018-09-21] MEDS: OXYBUTYNIN CHLORIDE 5 MG TABLET PO SCH (05:24)
[2018-09-21] MEDS: chlordiazePOXIDE HCL 25 MG CAPSULE PO SCH ×3 (05:25→17:51)
--- NOTE | 2018-09-21 09:19 | PN ---
S CIWA - CIWA Score Nausea/Vomitin-No Nausea/No Vomiting Muscle Tremors: 3 Anxiety: 2 Agitation: 3 Paroxysmal Sweats: 2 Orientation: 0-Oriented Tacttile Disturbances: 0-None Auditory Disturbances: 0-None Visual Disturbances: 0-None Headache: 0-None Present CIWA-Ar Total Score: 10 BHS Progress Note (SOAP) Subjective: mild shakes agitation little sweats Objective: 09/21/18 09:17 Vital Signs Temperature 97.7 F 09/21/18 07:52 Pulse Rate 92 H 09/21/18 07:52 Respiratory Rate 18 09/21/18 07:52 Blood Pressure 119/66 09/21/18 07:52 O2 Sat by Pulse Oximetry (%) Laboratory Tests 09/20/18 09/20/18 09/20/18 07:00 07:00 07:00 WBC 6.1 RBC 4.65 Hgb 13.8 Hct 40.9 MCV 88.1 MCH 29.8 MCHC 33.8 RDW 13.3 Plt Count 226 MPV 8.6 Sodium 140 Potassium 4.0 Chloride 106 Carbon Dioxide 26 Anion Gap 8 BUN 12 Creatinine 1.0 Creat Clearance w eGFR > 60 Random Glucose 85 Calcium 8.8 Total Bilirubin 0.6 AST 12 L ALT 17 Alkaline Phosphatase 61 Total Protein 6.6 Albumin 3.3 L RPR Titer Nonreactive HIV 1&2 Antibody Screen HIV P24 Antigen 09/20/18 08:00 WBC RBC Hgb Hct MCV MCH MCHC RDW Plt Count MPV Sodium Potassium Chloride Carbon Dioxide Anion Gap BUN Creatinine Creat Clearance w eGFR Random Glucose Calcium Total Bilirubin AST ALT Alkaline Phosphatase Total Protein Albumin RPR Titer HIV 1&2 Antibody Screen Negative HIV P24 Antigen Negative aaox3 ambulating no acute distress Assessment: 09/21/18 09:52 mild withdrawal sx Plan: continue detox
[2018-09-21] MEDS: PRENATAL VITAMINS W/ FOLIC ACID TABLET (FP) PO SCH (10:44)
[2018-09-21] MEDS: NICOTINE 21 MG/24 HOURS TOPICAL PATCH TD SCH (11:09)
[2018-09-21] MEDS: chlordiazePOXIDE HCL 25 MG CAPSULE PO PRN (13:02)
[2018-09-21] MEDS: MENTHOL/PHENOL 1 EACH UD MM PRN ×2 (13:03→20:26)
[2018-09-21] MEDS: BENZOCAINE 20 % GEL TUBE MM PRN (16:04)
[2018-09-21] MEDS: THIAMINE HCL 100 MG TABLET (FP) PO SCH (22:36)
[2018-09-21] MEDS: chlordiazePOXIDE 5 MG CAPSULE PO SCH (22:37)
[2018-09-21] MEDS: TAMSULOSIN HCL 0.4 MG CAP PO SCH (22:37)
[2018-09-22] MEDS: chlordiazePOXIDE 5 MG CAPSULE PO SCH ×3 (05:50→17:59)
[2018-09-22] MEDS: OXYBUTYNIN CHLORIDE 5 MG TABLET PO SCH (05:50)
[2018-09-22] MEDS: BENZOCAINE 20 % GEL TUBE MM PRN (06:15)
[2018-09-22] MEDS: MENTHOL/PHENOL 1 EACH UD MM PRN ×2 (09:48→21:25)
--- NOTE | 2018-09-22 10:36 | PN ---
BHS Progress Note (SOAP) Subjective: feeling better agitation Objective: 09/22/18 10:36 Vital Signs Temperature 97.7 F 09/22/18 09:49 Pulse Rate 96 H 09/22/18 09:49 Respiratory Rate 18 09/22/18 09:49 Blood Pressure 134/77 09/22/18 09:49 O2 Sat by Pulse Oximetry (%) aaox3 ambulating no acute distress Assessment: 09/22/18 10:36 mild withdrawal Plan: continue detox increase fluids d/c in am
[2018-09-22] MEDS: PRENATAL VITAMINS W/ FOLIC ACID TABLET (FP) PO SCH (10:38)
[2018-09-22] MEDS: NICOTINE 21 MG/24 HOURS TOPICAL PATCH TD SCH (10:39)
[2018-09-22] MEDS: chlordiazePOXIDE HCL 25 MG CAPSULE PO PRN (12:41)
[2018-09-22] MEDS: TAMSULOSIN HCL 0.4 MG CAP PO SCH (23:29)
[2018-09-22] MEDS: THIAMINE HCL 100 MG TABLET (FP) PO SCH (23:29)
[2018-09-22] MEDS: chlordiazePOXIDE HCL 10 MG CAPSULE PO SCH (23:29)
[2018-09-23] MEDS: OXYBUTYNIN CHLORIDE 5 MG TABLET PO SCH (05:30)
[2018-09-23] MEDS: chlordiazePOXIDE HCL 10 MG CAPSULE PO SCH ×2 (05:30→08:49)
[2018-09-23 07:51] VITALS: BP 110/67; PULSE 73; TEMP 97.7
[2018-09-23] MEDS: PRENATAL VITAMINS W/ FOLIC ACID TABLET (FP) PO SCH (08:49)
[2018-09-23] MEDS: NICOTINE 21 MG/24 HOURS TOPICAL PATCH TD SCH (08:49)
--- NOTE | 2018-09-23 10:01 | DS ---
[facility] Detox Discharge Summary Admission Date: 09/19/18 Discharge Date: 09/23/18 - History Present History: Alcohol Dependence, Cannabis Dependence, Cocaine Dependence Pertinent Past History: BPH, Seizure disorder - Physical Exam Results Vital Signs: Vital Signs Temperature 97.7 F 09/23/18 07:50 Pulse Rate 73 09/23/18 07:50 Respiratory Rate 18 09/23/18 07:50 Blood Pressure 110/67 09/23/18 07:50 O2 Sat by Pulse Oximetry (%) Pertinent Admission Physical Exam Findings: Withdrawal sx Laboratory Last Values WBC 6.1 K/mm3 (4.0-10.0) 09/20/18 07:00 RBC 4.65 M/mm3 (4.00-5.60) 09/20/18 07:00 Hgb 13.8 GM/dL (11.7-16.9) 09/20/18 07:00 Hct 40.9 % (35.4-49) 09/20/18 07:00 MCV 88.1 fl (80-96) 09/20/18 07:00 MCH 29.8 pg (25.7-33.7) 09/20/18 07:00 MCHC 33.8 g/dl (32.0-35.9) 09/20/18 07:00 RDW 13.3 % (11.9-15.9) 09/20/18 07:00 Plt Count 226 K/MM3 (134-434) 09/20/18 07:00 MPV 8.6 fl (7.5-11.1) 09/20/18 07:00 Sodium 140 mmol/L (136-145) 09/20/18 07:00 Potassium 4.0 mmol/L (3.5-5.1) 09/20/18 07:00 Chloride 106 mmol/L (98-107) 09/20/18 07:00 Carbon Dioxide 26 mmol/L (21-32) 09/20/18 07:00 Anion Gap 8 MMOL/L (8-16) 09/20/18 07:00 BUN 12 mg/dL (7-18) 09/20/18 07:00 Creatinine 1.0 mg/dL (0.55-1.3) 09/20/18 07:00 Creat Clearance w eGFR > 60 (>60) 09/20/18 07:00 Random Glucose 85 mg/dL (74-106) 09/20/18 07:00 Calcium 8.8 mg/dL (8.5-10.1) 09/20/18 07:00 Total Bilirubin 0.6 mg/dL (0.2-1) 09/20/18 07:00 AST 12 U/L (15-37) L 09/20/18 07:00 ALT 17 U/L (13-61) 09/20/18 07:00 Alkaline Phosphatase 61 U/L (45-117) 09/20/18 07:00 Total Protein 6.6 g/dl (6.4-8.2) 09/20/18 07:00 Albumin 3.3 g/dl (3.4-5.0) L 09/20/18 07:00 RPR Titer Nonreactive (NONREACTIVE) 09/20/18 07:00 HIV 1&2 Antibody Screen Negative 09/20/18 08:00 HIV P24 Antigen Negative 09/20/18 08:00 Labs noted, no panic values - Treatment Hospital Course: Detox Protocol Followed, Detoxed Safely, Responded well, Discharged Condition Good - Medication Discharge Medications: Ambulatory Orders Armodafinil [Nuvigil] 200 mg PO DAILY 08/12/16 Oxybutynin Chloride [Ditropan -] 5 mg PO DAILY@1000 tablet 12/08/17 Tamsulosin HCl [Flomax -] 0.4 mg PO HS cap.er.24h 12/08/17 - Diagnosis (1) Alcohol dependence with uncomplicated withdrawal Current Visit: Yes Status: Chronic (2) BPH (benign prostatic hyperplasia) Current Visit: Yes Status: Chronic Qualifiers: Lower urinary tract symptom detail: urinary frequency (3) Cocaine dependence, uncomplicated Current Visit: Yes Status: Acute (4) Nicotine dependence Current Visit: Yes Status: Acute Qualifiers: Nicotine product type: cigarettes Substance use status: uncomplicated Qualified Code(s): F17.210 - Nicotine dependence, cigarettes, uncomplicated (5) History of seizure disorder Current Visit: No Status: Suspected - AMA Did Patient Leave Against Medical Advice: No
== END 2018-09-23 08:49 | disposition home or self-care (01) | DRG 774 ==
LOC: YASAS 14:10 → Y6N 18:00
PROVIDERS: ADMIT Neuromusculoskeletal Medicine & OMM; ATTEND Neuromusculoskeletal Medicine & OMM
PROC: HZ2ZZZZ Detoxification Services for Substance Abuse Treatment (ICD-10-PCS; principal; 2018-09-19)
DX: F10.230 Alcohol dependence with withdrawal, uncomplicated (principal); F14.20 Cocaine dependence, uncomplicated; F17.210 Nicotine dependence, cigarettes, uncomplicated; N40.0 Benign prostatic hyperplasia without lower urinary tract symptoms; G47.419 Narcolepsy without cataplexy; Z86.69 Personal history of other diseases of the nervous system and sense organs
CPT/HCPCS: 36415; 80053; 85027; 86593; 87389

== ENCOUNTER 2019-03-11 12:42 | Inpatient (IN) | payer OTHER ==
[2019-03-11 13:40] VITALS: BMI 26.2
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
[2019-03-11] MEDS ORDERED: ACETAMINOPHEN 325 MG TABLET (FP) PO PRN ×2 (15:54)
[2019-03-11] MEDS ORDERED: BISMUTH SUBSALICYLATE 524 MG/30 ML UD PO PRN (15:54)
[2019-03-11] MEDS ORDERED: MAG HYDROX/AL HYDROX/SIMETH 30 ML UNIT-DOSE CUP PO PRN (15:54)
[2019-03-11] MEDS ORDERED: MAGNESIUM HYDROX 2400MG/30ML ORAL SUSPENSION 30 ML CUP PO PRN (15:54)
[2019-03-11] MEDS ORDERED: chlordiazePOXIDE HCL 25 MG CAPSULE PO PRN (15:54)
[2019-03-11] MEDS ORDERED: IBUPROFEN 400 MG TABLET (FP) PO PRN (15:54)
[2019-03-11] MEDS ORDERED: MELATONIN 5 MG TABLETS PO PRN (15:54)
[2019-03-11] MEDS ORDERED: METHOCARBAMOL 500 MG TABLET PO PRN (15:54)
[2019-03-11] MEDS ORDERED: hydrOXYzine PAMOATE 25 MG CAPSULE (FP) PO PRN (15:54)
[2019-03-11] MEDS ORDERED: MENTHOL/PHENOL 1 EACH UD MM PRN (15:54)
[2019-03-11] MEDS ORDERED: MAGNESIUM CITRATE 300 ML BOTTLE PO PRN (15:54)
[2019-03-11] MEDS: chlordiazePOXIDE HCL 25 MG CAPSULE PO SCH ×2 (17:45→22:24)
[2019-03-11] MEDS: THIAMINE HCL 100 MG TABLET (FP) PO SCH (22:24)
[2019-03-11] MEDS: TAMSULOSIN HCL 0.4 MG CAP PO SCH (22:24)
[2019-03-12] MEDS: chlordiazePOXIDE HCL 25 MG CAPSULE PO SCH ×4 (05:50→22:12)
[2019-03-12 09:54] LABS: ALBUMIN 3.7 g/dl (3.4-5.0); BILIRUBIN,TOTAL 0.5 mg/dL (0.2-1); BLOOD UREA NITROGEN 8.4 mg/dL (7-18); CALCIUM 10.1 mg/dL (8.5-10.1); CREATININE 1.2 mg/dL (0.55-1.3); POTASSIUM 4.1 mmol/L (3.5-5.1)
[2019-03-12 10:04] LABS: HEMATOCRIT 48.1 % (35.4-49); HEMOGLOBIN 15.5 GM/dL (11.7-16.9); MCH 28.3 pg (25.7-33.7); MCHC 32.2 g/dl (32.0-35.9); MEAN CELL VOLUME 87.8 fl (80-96); MEAN PLT VOLUME 9.1 fl (7.5-11.1); PLATELET COUNT 278 K/MM3 (134-434); RBC 5.48 M/mm3 (4.00-5.60); RDW 13.9 % (11.9-15.9)
[2019-03-12] MEDS: OXYBUTYNIN CHLORIDE 5 MG TABLET PO SCH (10:19)
[2019-03-12] MEDS: PRENATAL VITAMINS W/ FOLIC ACID TABLET (FP) PO SCH (10:20)
--- NOTE | 2019-03-12 10:30 | PN ---
[facility] CIWA - CIWA Score Nausea/Vomitin-Mild Nausea/No Vomiting Muscle Tremors: 4-Moderate,w/Arms Extend Anxiety: 1-Mildly Anxious Agitation: 2 Paroxysmal Sweats: 1-Minimal Palms Moist Orientation: 1-Uncertain about Date Tacttile Disturbances: 1-Very Mild Itch/Numbness Auditory Disturbances: 0-None Visual Disturbances: 0-None Headache: 0-None Present CIWA-Ar Total Score: 11 S Progress Note (SOAP) Subjective: doing well with librium detox regimen less tremor social with peers in day room mild restlessness patient is [facility] about [facility] Objective: 03/12/19 10:31 Vital Signs Temperature 97.8 F 03/12/19 09:15 Pulse Rate 117 H 03/12/19 09:15 Respiratory Rate 20 03/12/19 09:15 Blood Pressure 107/70 03/12/19 09:15 O2 Sat by Pulse Oximetry (%) Laboratory Last Values WBC 7.0 K/mm3 (4.0-10.0) 03/12/19 08:00 RBC 5.48 M/mm3 (4.00-5.60) 03/12/19 08:00 Hgb 15.5 GM/dL (11.7-16.9) 03/12/19 08:00 Hct 48.1 % (35.4-49) D 03/12/19 08:00 MCV 87.8 fl (80-96) 03/12/19 08:00 MCH 28.3 pg (25.7-33.7) 03/12/19 08:00 MCHC 32.2 g/dl (32.0-35.9) 03/12/19 08:00 RDW 13.9 % (11.9-15.9) 03/12/19 08:00 Plt Count 278 K/MM3 (134-434) D 03/12/19 08:00 MPV 9.1 fl (7.5-11.1) 03/12/19 08:00 Sodium 141 mmol/L (136-145) 03/12/19 08:00 Potassium 4.1 mmol/L (3.5-5.1) 03/12/19 08:00 Chloride 104 mmol/L (98-107) 03/12/19 08:00 Carbon Dioxide 32 mmol/L (21-32) 03/12/19 08:00 Anion Gap 5 MMOL/L (8-16) L 03/12/19 08:00 BUN 8.4 mg/dL (7-18) 03/12/19 08:00 Creatinine 1.2 mg/dL (0.55-1.3) 03/12/19 08:00 Est GFR (CKD-EPI)AfAm 81.80 03/12/19 08:00 Est GFR (CKD-EPI)NonAf 70.58 03/12/19 08:00 Random Glucose 92 mg/dL (74-106) 03/12/19 08:00 Calcium 10.1 mg/dL (8.5-10.1) 03/12/19 08:00 Total Bilirubin 0.5 mg/dL (0.2-1) 03/12/19 08:00 AST 13 U/L (15-37) L 03/12/19 08:00 ALT 19 U/L (13-61) 03/12/19 08:00 Alkaline Phosphatase 67 U/L (45-117) 03/12/19 08:00 Total Protein 8.0 g/dl (6.4-8.2) 03/12/19 08:00 Albumin 3.7 g/dl (3.4-5.0) 03/12/19 08:00 RPR Titer Nonreactive (NONREACTIVE) 03/12/19 08:00 lab noted Assessment: 03/12/19 10:31 alcohol withdrawal sx Plan: continue alcohol detox
[2019-03-12 12:49] LABS: EPI CELLS 0.3 /HPF (0-5/HPF); HYALINE CASTS 1 /lpf (0-8); PH,URINE 5.5 (5.0-8.0); URINE APPEARANCE CLEAR; URINE BACTERIA 2.2 /hpf (NEGATIVE); URINE BILIRUBIN NEGATIVE (NEGATIVE); URINE COLOR YELLOW; URINE GLUCOSE (UA) NEGATIVE (NEGATIVE); URINE KETONE NEGATIVE (NEGATIVE); URINE LEUK ESTERASE NEGATIVE (NEGATIVE); URINE NITRITE NEGATIVE (NEGATIVE); URINE PROTEIN NEGATIVE (NEGATIVE); URINE RBC 2 /hpf (0-4); URINE UROBILINOGEN 0.2 mg/dL (0.2-1.0); URINE WBC 1 /hpf (0-5)
[2019-03-12] MEDS: TAMSULOSIN HCL 0.4 MG CAP PO SCH (22:12)
[2019-03-12] MEDS: THIAMINE HCL 100 MG TABLET (FP) PO SCH (22:12)
[2019-03-13] MEDS: chlordiazePOXIDE HCL 25 MG CAPSULE PO SCH ×4 (06:28→22:53)
[2019-03-13] MEDS: PRENATAL VITAMINS W/ FOLIC ACID TABLET (FP) PO SCH (10:53)
[2019-03-13] MEDS: OXYBUTYNIN CHLORIDE 5 MG TABLET PO SCH (10:53)
--- NOTE | 2019-03-13 14:33 | PN ---
S CIWA - CIWA Score Nausea/Vomitin-No Nausea/No Vomiting Muscle Tremors: 2 Anxiety: 2 Agitation: 2 Paroxysmal Sweats: No Perspiration Orientation: 0-Oriented Tacttile Disturbances: 0-None Auditory Disturbances: 0-None Visual Disturbances: 0-None Headache: 1-Very Mild CIWA-Ar Total Score: 7 S Progress Note (SOAP) Subjective: doing well with librium detox protocol social with peers in day room discuss aftercare with staff patient walks into other patient's room regulation informed Objective: 03/13/19 14:36 Vital Signs Temperature 97.0 F L 03/13/19 13:00 Pulse Rate 99 H 03/13/19 13:00 Respiratory Rate 18 03/13/19 13:00 Blood Pressure 106/75 03/13/19 13:00 O2 Sat by Pulse Oximetry (%) Laboratory Last Values WBC 7.0 K/mm3 (4.0-10.0) 03/12/19 08:00 RBC 5.48 M/mm3 (4.00-5.60) 03/12/19 08:00 Hgb 15.5 GM/dL (11.7-16.9) 03/12/19 08:00 Hct 48.1 % (35.4-49) D 03/12/19 08:00 MCV 87.8 fl (80-96) 03/12/19 08:00 MCH 28.3 pg (25.7-33.7) 03/12/19 08:00 MCHC 32.2 g/dl (32.0-35.9) 03/12/19 08:00 RDW 13.9 % (11.9-15.9) 03/12/19 08:00 Plt Count 278 K/MM3 (134-434) D 03/12/19 08:00 MPV 9.1 fl (7.5-11.1) 03/12/19 08:00 Sodium 141 mmol/L (136-145) 03/12/19 08:00 Potassium 4.1 mmol/L (3.5-5.1) 03/12/19 08:00 Chloride 104 mmol/L (98-107) 03/12/19 08:00 Carbon Dioxide 32 mmol/L (21-32) 03/12/19 08:00 Anion Gap 5 MMOL/L (8-16) L 03/12/19 08:00 BUN 8.4 mg/dL (7-18) 03/12/19 08:00 Creatinine 1.2 mg/dL (0.55-1.3) 03/12/19 08:00 Est GFR (CKD-EPI)AfAm 81.80 03/12/19 08:00 Est GFR (CKD-EPI)NonAf 70.58 03/12/19 08:00 Random Glucose 92 mg/dL (74-106) 03/12/19 08:00 Calcium 10.1 mg/dL (8.5-10.1) 03/12/19 08:00 Total Bilirubin 0.5 mg/dL (0.2-1) 03/12/19 08:00 AST 13 U/L (15-37) L 03/12/19 08:00 ALT 19 U/L (13-61) 03/12/19 08:00 Alkaline Phosphatase 67 U/L (45-117) 03/12/19 08:00 Total Protein 8.0 g/dl (6.4-8.2) 03/12/19 08:00 Albumin 3.7 g/dl (3.4-5.0) 03/12/19 08:00 Urine Color Yellow 03/12/19 09:40 Urine Appearance Clear 03/12/19 09:40 Urine pH 5.5 (5.0-8.0) 03/12/19 09:40 Ur Specific [place] 1.011 (1.010-1.035) 03/12/19 09:40 Urine Protein Negative (NEGATIVE) 03/12/19 09:40 Urine Glucose (UA) Negative (NEGATIVE) 03/12/19 09:40 Urine Ketones Negative (NEGATIVE) 03/12/19 09:40 Urine Blood Negative (NEGATIVE) 03/12/19 09:40 Urine Nitrite Negative (NEGATIVE) 03/12/19 09:40 Urine Bilirubin Negative (NEGATIVE) 03/12/19 09:40 Urine Urobilinogen 0.2 mg/dL (0.2-1.0) 03/12/19 09:40 Ur Leukocyte Esterase Negative (NEGATIVE) 03/12/19 09:40 Urine WBC (Auto) 1 /hpf (0-5) 03/12/19 09:40 Urine RBC (Auto) 2 /hpf (0-4) 03/12/19 09:40 Urine Casts (Auto) 1 /lpf (0-8) 03/12/19 09:40 U Epithel Cells (Auto) 0.3 /HPF (0-5/HPF) 03/12/19 09:40 Urine Bacteria (Auto) 2.2 /hpf (NEGATIVE) 03/12/19 09:40 RPR Titer Nonreactive (NONREACTIVE) 03/12/19 08:00 HIV 1&2 Antibody Screen Negative 03/12/19 08:00 HIV P24 Antigen Negative 03/12/19 08:00 lab noted result discussed with the patient Assessment: 03/13/19 14:37 alcohol withdrawal sx Plan: continue alcohol detox
[2019-03-13] MEDS: TAMSULOSIN HCL 0.4 MG CAP PO SCH (22:53)
[2019-03-13] MEDS: THIAMINE HCL 100 MG TABLET (FP) PO SCH (22:53)
[2019-03-14] MEDS ORDERED: chlordiazePOXIDE HCL 10 MG CAPSULE PO PRN
[2019-03-14] MEDS ORDERED: chlordiazePOXIDE HCL 10 MG CAPSULE PO SCH (05:00)
[2019-03-14 09:27] VITALS: BP 123/84; PULSE 104; TEMP 97.4
--- NOTE | 2019-03-14 13:14 | DS ---
[facility] Detox Discharge Summary Admission Date: 03/11/19 Discharge Date: 03/14/19 - History Present History: Alcohol Dependence Additional Comments: 48 years old male admitted on 03/11/19 for alcohol withdrawal stabilization insists to leave the detox unit today that he is not ready for alcohol detox patient is alert steady gait no acute distress denies suicidal ideation aftercare [facility] or community support approach - Physical Exam Results Vital Signs: Vital Signs Temperature 97.4 F L 03/14/19 08:55 Pulse Rate 104 H 03/14/19 08:55 Respiratory Rate 20 03/14/19 08:55 Blood Pressure 123/84 03/14/19 08:55 O2 Sat by Pulse Oximetry (%) Pertinent Admission Physical Exam Findings: alcohol withdrawal sx Laboratory Last Values WBC 7.0 K/mm3 (4.0-10.0) 03/12/19 08:00 RBC 5.48 M/mm3 (4.00-5.60) 03/12/19 08:00 Hgb 15.5 GM/dL (11.7-16.9) 03/12/19 08:00 Hct 48.1 % (35.4-49) D 03/12/19 08:00 MCV 87.8 fl (80-96) 03/12/19 08:00 MCH 28.3 pg (25.7-33.7) 03/12/19 08:00 MCHC 32.2 g/dl (32.0-35.9) 03/12/19 08:00 RDW 13.9 % (11.9-15.9) 03/12/19 08:00 Plt Count 278 K/MM3 (134-434) D 03/12/19 08:00 MPV 9.1 fl (7.5-11.1) 03/12/19 08:00 Sodium 141 mmol/L (136-145) 03/12/19 08:00 Potassium 4.1 mmol/L (3.5-5.1) 03/12/19 08:00 Chloride 104 mmol/L (98-107) 03/12/19 08:00 Carbon Dioxide 32 mmol/L (21-32) 03/12/19 08:00 Anion Gap 5 MMOL/L (8-16) L 03/12/19 08:00 BUN 8.4 mg/dL (7-18) 03/12/19 08:00 Creatinine 1.2 mg/dL (0.55-1.3) 03/12/19 08:00 Est GFR (CKD-EPI)AfAm 81.80 03/12/19 08:00 Est GFR (CKD-EPI)NonAf 70.58 03/12/19 08:00 Random Glucose 92 mg/dL (74-106) 03/12/19 08:00 Calcium 10.1 mg/dL (8.5-10.1) 03/12/19 08:00 Total Bilirubin 0.5 mg/dL (0.2-1) 03/12/19 08:00 AST 13 U/L (15-37) L 03/12/19 08:00 ALT 19 U/L (13-61) 03/12/19 08:00 Alkaline Phosphatase 67 U/L (45-117) 03/12/19 08:00 Total Protein 8.0 g/dl (6.4-8.2) 03/12/19 08:00 Albumin 3.7 g/dl (3.4-5.0) 03/12/19 08:00 Urine Color Yellow 03/12/19 09:40 Urine Appearance Clear 03/12/19 09:40 Urine pH 5.5 (5.0-8.0) 03/12/19 09:40 Ur Specific [place] 1.011 (1.010-1.035) 03/12/19 09:40 Urine Protein Negative (NEGATIVE) 03/12/19 09:40 Urine Glucose (UA) Negative (NEGATIVE) 03/12/19 09:40 Urine Ketones Negative (NEGATIVE) 03/12/19 09:40 Urine Blood Negative (NEGATIVE) 03/12/19 09:40 Urine Nitrite Negative (NEGATIVE) 03/12/19 09:40 Urine Bilirubin Negative (NEGATIVE) 03/12/19 09:40 Urine Urobilinogen 0.2 mg/dL (0.2-1.0) 03/12/19 09:40 Ur Leukocyte Esterase Negative (NEGATIVE) 03/12/19 09:40 Urine WBC (Auto) 1 /hpf (0-5) 03/12/19 09:40 Urine RBC (Auto) 2 /hpf (0-4) 03/12/19 09:40 Urine Casts (Auto) 1 /lpf (0-8) 03/12/19 09:40 U Epithel Cells (Auto) 0.3 /HPF (0-5/HPF) 03/12/19 09:40 Urine Bacteria (Auto) 2.2 /hpf (NEGATIVE) 03/12/19 09:40 RPR Titer Nonreactive (NONREACTIVE) 03/12/19 08:00 HIV 1&2 Antibody Screen Negative 03/12/19 08:00 HIV P24 Antigen Negative 03/12/19 08:00 lab noted - Treatment Hospital Course: Detox Protocol Followed, Responded well Patient has Accepted a Rehab Referral to: community [facility] / [facility] - Medication Discharge Medications: Ambulatory Orders Armodafinil [Nuvigil] 200 mg PO DAILY 08/12/16 Oxybutynin Chloride [Ditropan -] 5 mg PO DAILY@1000 tablet 12/08/17 Ibuprofen [Motrin -] 800 mg PO TID PRN 03/11/19 Tamsulosin HCl [Flomax -] 0.4 mg PO HS 03/11/19 - Diagnosis (1) Alcohol dependence with uncomplicated withdrawal Status: Acute (2) Nicotine dependence Status: Acute Qualifiers: Nicotine product type: cigarettes Substance use status: in withdrawal Qualified Code(s): F17.213 - Nicotine dependence, cigarettes, with withdrawal - AMA Did Patient Leave Against Medical Advice: Yes
[2019-03-15] MEDS ORDERED: chlordiazePOXIDE HCL 10 MG CAPSULE PO SCH (05:00)
[2019-03-16] MEDS ORDERED: chlordiazePOXIDE HCL 10 MG CAPSULE PO ONE (05:00)
== END 2019-03-14 09:01 | disposition left against medical advice (07) | DRG 770 ==
LOC: YASAS 12:42 → Y3N 16:46
PROVIDERS: ADMIT Surgery; ATTEND Surgery
PROC: HZ2ZZZZ Detoxification Services for Substance Abuse Treatment (ICD-10-PCS; principal; 2019-03-11)
DX: F10.230 Alcohol dependence with withdrawal, uncomplicated (principal); F14.20 Cocaine dependence, uncomplicated; F17.210 Nicotine dependence, cigarettes, uncomplicated; G47.419 Narcolepsy without cataplexy; N40.0 Benign prostatic hyperplasia without lower urinary tract symptoms; R63.4 Abnormal weight loss; Z68.26 Body mass index [BMI] 26.0-26.9, adult; Z86.69 Personal history of other diseases of the nervous system and sense organs
CPT/HCPCS: 36415; 80053; 81003; 85027; 86593; 87389

== ENCOUNTER 2019-07-29 12:22 | Inpatient (IN) | payer OTHER ==
[2019-07-29 13:22] VITALS: BMI 25.8
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
[2019-07-29] MEDS ORDERED: hydrOXYzine PAMOATE 25 MG CAPSULE (FP) PO PRN (14:50)
[2019-07-29] MEDS ORDERED: MAGNESIUM CITRATE 300 ML BOTTLE PO PRN (14:50)
[2019-07-29] MEDS ORDERED: MENTHOL/PHENOL 1 EACH UD MM PRN (14:50)
[2019-07-29] MEDS ORDERED: MAGNESIUM HYDROX 2400MG/30ML ORAL SUSPENSION 30 ML CUP PO PRN (14:50)
[2019-07-29] MEDS ORDERED: IBUPROFEN 400 MG TABLET (FP) PO PRN (14:50)
[2019-07-29] MEDS ORDERED: BISMUTH SUBSALICYLATE 524 MG/30 ML UD PO PRN (14:50)
[2019-07-29] MEDS ORDERED: LORazepam 1 MG TABLET PO PRN (14:50)
[2019-07-29] MEDS ORDERED: METHOCARBAMOL 500 MG TABLET PO PRN (14:50)
[2019-07-29] MEDS ORDERED: ACETAMINOPHEN 325 MG TABLET (FP) PO PRN ×2 (14:50)
[2019-07-29] MEDS ORDERED: MAG HYDROX/AL HYDROX/SIMETH 30 ML UNIT-DOSE CUP PO PRN (14:50)
[2019-07-29] MEDS: NICOTINE 21 MG/24 HOURS TOPICAL PATCH TD SCH (15:44)
[2019-07-29] MEDS: LORazepam 2 MG TABLET PO SCH ×2 (16:44→22:10)
[2019-07-29] MEDS: THIAMINE HCL 100 MG TABLET (FP) PO SCH (22:10)
[2019-07-29] MEDS: TAMSULOSIN HCL 0.4 MG CAP PO SCH (22:10)
[2019-07-30] MEDS: LORazepam 2 MG TABLET PO SCH ×4 (05:43→23:05)
[2019-07-30 09:48] LABS: HEMATOCRIT 44.4 % (35.4-49); HEMOGLOBIN 14.7 GM/dL (11.7-16.9); MCH 28.8 pg (25.7-33.7); MCHC 33.1 g/dl (32.0-35.9); MEAN PLT VOLUME 9.1 fl (7.5-11.1); PLATELET COUNT 300 K/MM3 (134-434); RDW 13.6 % (11.9-15.9); WHITE BLOOD COUNT 4.5 K/mm3 (4.0-10.0)
[2019-07-30 10:06] LABS: ALBUMIN 3.6 g/dl (3.4-5.0); BILIRUBIN,TOTAL 0.8 mg/dL (0.2-1); BLOOD UREA NITROGEN 16.6 mg/dL (7-18); CALCIUM 9.5 mg/dL (8.5-10.1); CREATININE 1.2 mg/dL (0.55-1.3); POTASSIUM 4.4 mmol/L (3.5-5.1); TOT PROT 7.5 g/dl (6.4-8.2)
--- NOTE | 2019-07-30 10:18 | PN ---
[facility] CIWA - CIWA Score Nausea/Vomitin-Mild Nausea/No Vomiting Muscle Tremors: 1-None Visible, but [place] Anxiety: 2 Agitation: 2 Paroxysmal Sweats: No Perspiration Orientation: 0-Oriented Tacttile Disturbances: 1-Very Mild Itch/Numbness Auditory Disturbances: 0-None Visual Disturbances: 0-None Headache: 2-Mild CIWA-Ar Total Score: 9 [facility] Progress Note (SOAP) Subjective: alert,irritable,anxious,interrupted sleep,tremor Objective: 07/30/19 10:17 Vital Signs Temperature 97.1 F L 07/30/19 09:13 Pulse Rate 69 07/30/19 09:13 Respiratory Rate 18 07/30/19 09:13 Blood Pressure 126/69 07/30/19 09:13 O2 Sat by Pulse Oximetry (%) 07/30/19 10:17 labs pending Assessment: 07/30/19 10:17 withdrawal symptom Plan: continue detox ativan regimen,
[2019-07-30 10:20] LABS: EPI CELLS 0.8 /HPF (0-5/HPF); HYALINE CASTS 25 /lpf (0-8); PH,URINE 5.5 (5.0-8.0); URINE APPEARANCE CLEAR; URINE BACTERIA 19.8 /hpf (NEGATIVE); URINE BILIRUBIN NEGATIVE (NEGATIVE); URINE COLOR YELLOW; URINE GLUCOSE (UA) NEGATIVE (NEGATIVE); URINE KETONE NEGATIVE (NEGATIVE); URINE LEUK ESTERASE 1+ (NEGATIVE); URINE NITRITE NEGATIVE (NEGATIVE); URINE PROTEIN NEGATIVE (NEGATIVE); URINE RBC 1 /hpf (0-4); URINE UROBILINOGEN 0.2 mg/dL (0.2-1.0); URINE WBC 50 /hpf (0-5)
[2019-07-30] MEDS: OXYBUTYNIN CHLORIDE 5 MG TABLET PO SCH (10:22)
[2019-07-30] MEDS: NICOTINE 21 MG/24 HOURS TOPICAL PATCH TD SCH (10:22)
[2019-07-30] MEDS: PRENATAL VITAMINS W/ FOLIC ACID TABLET (FP) PO SCH (10:22)
[2019-07-30] MEDS: TAMSULOSIN HCL 0.4 MG CAP PO SCH (21:43)
[2019-07-30] MEDS: THIAMINE HCL 100 MG TABLET (FP) PO SCH (22:06)
[2019-07-31] MEDS: MELATONIN 5 MG TABLETS PO PRN (01:06)
[2019-07-31] MEDS: LORazepam 1 MG TABLET PO SCH ×4 (05:57→22:14)
--- NOTE | 2019-07-31 09:50 | PN ---
S CIWA - CIWA Score Nausea/Vomitin-Mild Nausea/No Vomiting Muscle Tremors: 1-None Visible, but [place] Anxiety: 2 Agitation: 2 Paroxysmal Sweats: No Perspiration Orientation: 0-Oriented Tacttile Disturbances: 1-Very Mild Itch/Numbness Auditory Disturbances: 0-None Visual Disturbances: 0-None Headache: 1-Very Mild CIWA-Ar Total Score: 8 [facility] Progress Note (SOAP) Subjective: alert,irritable,anxious,interrupted sleep,pain in the body,no burning on urination Objective: 07/31/19 09:49 Vital Signs Temperature 97.7 F 07/31/19 09:18 Pulse Rate 113 H 07/31/19 09:18 Respiratory Rate 18 07/31/19 09:18 Blood Pressure 136/67 07/31/19 09:18 O2 Sat by Pulse Oximetry (%) Laboratory Last Values WBC 4.5 K/mm3 (4.0-10.0) 07/30/19 08:00 RBC 5.10 M/mm3 (4.00-5.60) 07/30/19 08:00 Hgb 14.7 GM/dL (11.7-16.9) 07/30/19 08:00 Hct 44.4 % (35.4-49) 07/30/19 08:00 MCV 87.0 fl (80-96) 07/30/19 08:00 MCH 28.8 pg (25.7-33.7) 07/30/19 08:00 MCHC 33.1 g/dl (32.0-35.9) 07/30/19 08:00 RDW 13.6 % (11.9-15.9) 07/30/19 08:00 Plt Count 300 K/MM3 (134-434) 07/30/19 08:00 MPV 9.1 fl (7.5-11.1) 07/30/19 08:00 Sodium 139 mmol/L (136-145) 07/30/19 08:00 Potassium 4.4 mmol/L (3.5-5.1) 07/30/19 08:00 Chloride 108 mmol/L (98-107) H 07/30/19 08:00 Carbon Dioxide 26 mmol/L (21-32) 07/30/19 08:00 Anion Gap 6 MMOL/L (8-16) L 07/30/19 08:00 BUN 16.6 mg/dL (7-18) 07/30/19 08:00 Creatinine 1.2 mg/dL (0.55-1.3) 07/30/19 08:00 Est GFR (CKD-EPI)AfAm 81.23 07/30/19 08:00 Est GFR (CKD-EPI)NonAf 70.09 07/30/19 08:00 Random Glucose 119 mg/dL (74-106) H 07/30/19 08:00 Calcium 9.5 mg/dL (8.5-10.1) 07/30/19 08:00 Total Bilirubin 0.8 mg/dL (0.2-1) 07/30/19 08:00 AST 20 U/L (15-37) 07/30/19 08:00 ALT 21 U/L (13-61) 07/30/19 08:00 Alkaline Phosphatase 68 U/L (45-117) 07/30/19 08:00 Total Protein 7.5 g/dl (6.4-8.2) 07/30/19 08:00 Albumin 3.6 g/dl (3.4-5.0) 07/30/19 08:00 Urine Color Yellow 07/30/19 08:00 Urine Appearance Clear 07/30/19 08:00 Urine pH 5.5 (5.0-8.0) 07/30/19 08:00 Ur Specific [place] 1.024 (1.010-1.035) 07/30/19 08:00 Urine Protein Negative (NEGATIVE) 07/30/19 08:00 Urine Glucose (UA) Negative (NEGATIVE) 07/30/19 08:00 Urine Ketones Negative (NEGATIVE) 07/30/19 08:00 Urine Blood Negative (NEGATIVE) 07/30/19 08:00 Urine Nitrite Negative (NEGATIVE) 07/30/19 08:00 Urine Bilirubin Negative (NEGATIVE) 07/30/19 08:00 Urine Urobilinogen 0.2 mg/dL (0.2-1.0) 07/30/19 08:00 Ur Leukocyte Esterase 1+ (NEGATIVE) H 07/30/19 08:00 Urine WBC (Auto) 50 /hpf (0-5) 07/30/19 08:00 Urine RBC (Auto) 1 /hpf (0-4) 07/30/19 08:00 Urine Casts (Auto) 25 /lpf (0-8) 07/30/19 08:00 U Epithel Cells (Auto) 0.8 /HPF (0-5/HPF) 07/30/19 08:00 Urine Bacteria (Auto) 19.8 /hpf (NEGATIVE) 07/30/19 08:00 RPR Titer Nonreactive (NONREACTIVE) 07/30/19 08:00 HIV 1&2 Antibody Screen Negative 07/30/19 10:20 HIV P24 Antigen Negative 07/30/19 10:20 Assessment: 07/31/19 09:49 withdrawal symptom Plan: continue detox ativan regimen,encourage oral fluid,repeat ua
[2019-07-31] MEDS: PRENATAL VITAMINS W/ FOLIC ACID TABLET (FP) PO SCH (10:24)
[2019-07-31] MEDS: NICOTINE 21 MG/24 HOURS TOPICAL PATCH TD SCH (10:24)
[2019-07-31] MEDS: OXYBUTYNIN CHLORIDE 5 MG TABLET PO SCH (10:24)
[2019-07-31] MEDS ORDERED: LOPERAMIDE HCL 2 MG CAPSULE PO PRN (12:13)
[2019-07-31] MEDS: TAMSULOSIN HCL 0.4 MG CAP PO SCH (22:13)
[2019-07-31] MEDS: THIAMINE HCL 100 MG TABLET (FP) PO SCH (22:13)
[2019-07-31] MEDS: IBUPROFEN 400 MG TABLET (FP) PO PRN (22:16)
[2019-08-01] MEDS ORDERED: LORazepam 0.5 MG TABLET PO PRN
[2019-08-01] MEDS: OXYBUTYNIN CHLORIDE 5 MG TABLET PO SCH (06:19)
[2019-08-01] MEDS: LORazepam 0.5 MG TABLET PO SCH ×4 (06:19→22:21)
[2019-08-01] MEDS: NICOTINE 21 MG/24 HOURS TOPICAL PATCH TD SCH (10:00)
[2019-08-01] MEDS: PRENATAL VITAMINS W/ FOLIC ACID TABLET (FP) PO SCH (10:00)
--- NOTE | 2019-08-01 10:24 | PN ---
S CIWA - CIWA Score Nausea/Vomitin-No Nausea/No Vomiting Muscle Tremors: 1-None Visible, but [place] Anxiety: 1-Mildly Anxious Agitation: 1-Slight > Activity Paroxysmal Sweats: No Perspiration Orientation: 0-Oriented Tacttile Disturbances: 1-Very Mild Itch/Numbness Auditory Disturbances: 0-None Visual Disturbances: 0-None Headache: 1-Very Mild CIWA-Ar Total Score: 5 [facility] Progress Note (SOAP) Subjective: alert,irritable,anxious,interrupted sleep,dry skin Objective: 08/01/19 10:22 Vital Signs Temperature 97.9 F 08/01/19 09:31 Pulse Rate 109 H 08/01/19 09:31 Respiratory Rate 18 08/01/19 09:31 Blood Pressure 107/70 08/01/19 09:31 O2 Sat by Pulse Oximetry (%) Assessment: 08/01/19 10:23 withdrawal symptom Plan: continue detox ativan regimen,lachydrin lotion bid,discharge in am
[2019-08-01] MEDS: AMMONIUM LACTATE 12% LOTION 225 GM BOTTLE TP SCH ×2 (17:34→22:21)
[2019-08-01] MEDS: IBUPROFEN 400 MG TABLET (FP) PO PRN (18:15)
[2019-08-01] MEDS: TAMSULOSIN HCL 0.4 MG CAP PO SCH (22:21)
[2019-08-01] MEDS: MELATONIN 5 MG TABLETS PO PRN (22:22)
[2019-08-01] MEDS: THIAMINE HCL 100 MG TABLET (FP) PO SCH (22:22)
[2019-08-02] MEDS ORDERED: LORazepam 0.5 MG TABLET PO ONE (05:00)
[2019-08-02] MEDS: OXYBUTYNIN CHLORIDE 5 MG TABLET PO SCH (05:05)
[2019-08-02 06:09] VITALS: BP 113/72
--- NOTE | 2019-08-02 08:48 | DS ---
[facility] Detox Discharge Summary Admission Date: 07/29/19 Discharge Date: 08/02/19 - History Present History: Alcohol Dependence, Cocaine Dependence - Physical Exam Results Vital Signs: Vital Signs Temperature 98.1 F 08/02/19 06:08 Pulse Rate 103 H 08/02/19 06:08 Respiratory Rate 18 08/02/19 06:08 Blood Pressure 113/72 08/02/19 06:08 O2 Sat by Pulse Oximetry (%) Pertinent Admission Physical Exam Findings: pt arrived in withdrawals Vital Signs Temperature 98.1 F 08/02/19 06:08 Pulse Rate 103 H 08/02/19 06:08 Respiratory Rate 18 08/02/19 06:08 Blood Pressure 113/72 08/02/19 06:08 O2 Sat by Pulse Oximetry (%) Laboratory Tests 07/30/19 07/30/19 07/30/19 08:00 08:00 08:00 WBC 4.5 RBC 5.10 Hgb 14.7 Hct 44.4 MCV 87.0 MCH 28.8 MCHC 33.1 RDW 13.6 Plt Count 300 MPV 9.1 Sodium 139 Potassium 4.4 Chloride 108 H Carbon Dioxide 26 Anion Gap 6 L BUN 16.6 Creatinine 1.2 Est GFR (CKD-EPI)AfAm 81.23 Est GFR (CKD-EPI)NonAf 70.09 Random Glucose 119 H Calcium 9.5 Total Bilirubin 0.8 AST 20 ALT 21 Alkaline Phosphatase 68 Total Protein 7.5 Albumin 3.6 Urine Color Urine Appearance Urine pH Ur Specific [place] Urine Protein Urine Glucose (UA) Urine Ketones Urine Blood Urine Nitrite Urine Bilirubin Urine Urobilinogen Ur Leukocyte Esterase Urine WBC (Auto) Urine RBC (Auto) Urine Casts (Auto) U Epithel Cells (Auto) Urine Bacteria (Auto) RPR Titer Nonreactive HIV 1&2 Antibody Screen HIV P24 Antigen 07/30/19 07/30/19 08:00 10:20 WBC RBC Hgb Hct MCV MCH MCHC RDW Plt Count MPV Sodium Potassium Chloride Carbon Dioxide Anion Gap BUN Creatinine Est GFR (CKD-EPI)AfAm Est GFR (CKD-EPI)NonAf Random Glucose Calcium Total Bilirubin AST ALT Alkaline Phosphatase Total Protein Albumin Urine Color Yellow Urine Appearance Clear Urine pH 5.5 Ur Specific [place] 1.024 Urine Protein Negative Urine Glucose (UA) Negative Urine Ketones Negative Urine Blood Negative Urine Nitrite Negative Urine Bilirubin Negative Urine Urobilinogen 0.2 Ur Leukocyte Esterase 1+ H Urine WBC (Auto) 50 Urine RBC (Auto) 1 Urine Casts (Auto) 25 U Epithel Cells (Auto) 0.8 Urine Bacteria (Auto) 19.8 RPR Titer HIV 1&2 Antibody Screen Negative HIV P24 Antigen Negative today pt is aaox3 ambulating no acute distress - Treatment Hospital Course: Detox Protocol Followed, Detoxed Safely, Responded well, Discharged Condition Good, Rehab Referral Accepted Patient has Accepted a Rehab Referral to: pt declined detox; referral provided - Medication Discharge Medications: Ambulatory Orders Armodafinil [Nuvigil] 200 mg PO DAILY 08/12/16 Oxybutynin Chloride [Ditropan -] 5 mg PO DAILY@1000 tablet 12/08/17 Ibuprofen [Motrin -] 800 mg PO TID PRN 03/11/19 Tamsulosin HCl [Flomax -] 0.4 mg PO HS 03/11/19 - Diagnosis (1) Alcohol dependence with uncomplicated withdrawal Current Visit: Yes Status: Chronic (2) Cocaine dependence, uncomplicated Current Visit: Yes Status: Chronic (3) Nicotine dependence Current Visit: Yes Status: Chronic Qualifiers: Nicotine product type: cigarettes Substance use status: uncomplicated Qualified Code(s): F17.210 - Nicotine dependence, cigarettes, uncomplicated (4) BPH (benign prostatic hyperplasia) Current Visit: No Status: Chronic Qualifiers: Lower urinary tract symptom detail: urinary frequency (5) Narcolepsy Current Visit: No Status: Chronic (6) History of seizure disorder Current Visit: No Status: Suspected - AMA Did Patient Leave Against Medical Advice: No
[2019-08-02 09:45] VITALS: PULSE 71; TEMP 97.9
[2019-08-02] MEDS: AMMONIUM LACTATE 12% LOTION 225 GM BOTTLE TP SCH (10:32)
[2019-08-02] MEDS: PRENATAL VITAMINS W/ FOLIC ACID TABLET (FP) PO SCH (10:32)
[2019-08-02] MEDS: NICOTINE 21 MG/24 HOURS TOPICAL PATCH TD SCH (10:32)
== END 2019-08-02 11:27 | disposition home or self-care (01) | DRG 774 ==
LOC: YASAS 12:22 → Y6N 15:14
PROVIDERS: ADMIT Allergy & Immunology; ATTEND Allergy & Immunology
PROC: HZ2ZZZZ Detoxification Services for Substance Abuse Treatment (ICD-10-PCS; principal; 2019-07-29)
DX: F10.230 Alcohol dependence with withdrawal, uncomplicated (principal); F14.20 Cocaine dependence, uncomplicated; F17.210 Nicotine dependence, cigarettes, uncomplicated; G47.419 Narcolepsy without cataplexy; N40.1 Benign prostatic hyperplasia with lower urinary tract symptoms; R35.0 Frequency of micturition; Z86.69 Personal history of other diseases of the nervous system and sense organs
CPT/HCPCS: 36415; 80053; 81003; 85027; 86593; 87389

== ENCOUNTER 2019-09-10 12:59 | Inpatient (IN) | payer OTHER ==
[2019-09-10 14:14] VITALS: BMI 26.9
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
[2019-09-10] MEDS ORDERED: ACETAMINOPHEN 325 MG TABLET (FP) PO PRN ×2 (17:21)
[2019-09-10] MEDS ORDERED: MAGNESIUM CITRATE 300 ML BOTTLE PO PRN (17:21)
[2019-09-10] MEDS ORDERED: chlordiazePOXIDE HCL 10 MG CAPSULE PO PRN (17:21)
[2019-09-10] MEDS ORDERED: hydrOXYzine PAMOATE 25 MG CAPSULE (FP) PO PRN (17:21)
[2019-09-10] MEDS ORDERED: MENTHOL/PHENOL 1 EACH UD MM PRN (17:21)
[2019-09-10] MEDS ORDERED: MAG HYDROX/AL HYDROX/SIMETH 30 ML UNIT-DOSE CUP PO PRN (17:21)
[2019-09-10] MEDS ORDERED: NICOTINE POLACRILEX 2 MG GUM BUC PRN (17:21)
[2019-09-10] MEDS ORDERED: MAGNESIUM HYDROX 2400MG/30ML ORAL SUSPENSION 30 ML CUP PO PRN (17:21)
[2019-09-10] MEDS ORDERED: BISMUTH SUBSALICYLATE 524 MG/30 ML UD PO PRN (17:21)
[2019-09-10] MEDS: IBUPROFEN 400 MG TABLET (FP) PO PRN (18:53)
[2019-09-10] MEDS: THIAMINE HCL 100 MG TABLET (FP) PO SCH (22:11)
[2019-09-10] MEDS: chlordiazePOXIDE HCL 25 MG CAPSULE PO SCH (22:11)
[2019-09-10] MEDS: TAMSULOSIN HCL 0.4 MG CAP PO SCH (22:11)
[2019-09-10] MEDS: MELATONIN 5 MG TABLETS PO PRN (22:12)
[2019-09-11] MEDS: chlordiazePOXIDE HCL 25 MG CAPSULE PO SCH ×3 (05:27→22:20)
[2019-09-11 09:38] LABS: HEMATOCRIT 42.2 % (35.4-49); HEMOGLOBIN 13.8 GM/dL (11.7-16.9); MCH 28.8 pg (25.7-33.7); MCHC 32.6 g/dl (32.0-35.9); MEAN CELL VOLUME 88.3 fl (80-96); MEAN PLT VOLUME 9.1 fl (7.5-11.1); PLATELET COUNT 263 K/MM3 (134-434); RBC 4.78 M/mm3 (4.00-5.60); RDW 13.4 % (11.9-15.9); WHITE BLOOD COUNT 4.6 K/mm3 (4.0-10.0)
[2019-09-11 09:55] LABS: ALBUMIN 3.2 g/dl (3.4-5.0); BILIRUBIN,TOTAL 0.4 mg/dL (0.2-1); BLOOD UREA NITROGEN 14.1 mg/dL (7-18); CALCIUM 9.1 mg/dL (8.5-10.1); CREATININE 1.1 mg/dL (0.55-1.3); POTASSIUM 4.1 mmol/L (3.5-5.1); TOT PROT 6.5 g/dl (6.4-8.2)
[2019-09-11] MEDS ORDERED: ARMODAFINIL 200 MG PO SCH (10:00)
[2019-09-11] MEDS: OXYBUTYNIN CHLORIDE 5 MG TABLET PO SCH (10:07)
[2019-09-11] MEDS: PRENATAL VITAMINS W/ FOLIC ACID TABLET (FP) PO SCH (10:07)
--- NOTE | 2019-09-11 10:07 | PN ---
[facility] CIWA - CIWA Score Nausea/Vomitin-Mild Nausea/No Vomiting Muscle Tremors: 3 Anxiety: 4-Mod. Anxious/Guarded Agitation: 1-Slight > Activity Paroxysmal Sweats: 2 Orientation: 0-Oriented Tacttile Disturbances: 0-None Auditory Disturbances: 0-None Visual Disturbances: 0-None Headache: 0-None Present CIWA-Ar Total Score: 11 S Progress Note (SOAP) Subjective: 49 years old male admitted on 09/10/19 for alcohol withdrawal sx management trating with librium detox regimen patient was taking armodafinil for narcoleptic episodes patient has not brought in with him upon detox admission [facility] pharmacy does not have the medication discontinue amodafinil psychiatric consultation Objective: 09/11/19 10:13 Vital Signs Temperature 96.6 F L 09/11/19 09:08 Pulse Rate 76 09/11/19 09:08 Respiratory Rate 18 09/11/19 09:08 Blood Pressure 115/72 09/11/19 09:08 O2 Sat by Pulse Oximetry (%) Laboratory Last Values WBC 4.6 K/mm3 (4.0-10.0) 09/11/19 08:00 RBC 4.78 M/mm3 (4.00-5.60) 09/11/19 08:00 Hgb 13.8 GM/dL (11.7-16.9) 09/11/19 08:00 Hct 42.2 % (35.4-49) 09/11/19 08:00 MCV 88.3 fl (80-96) 09/11/19 08:00 MCH 28.8 pg (25.7-33.7) 09/11/19 08:00 MCHC 32.6 g/dl (32.0-35.9) 09/11/19 08:00 RDW 13.4 % (11.9-15.9) 09/11/19 08:00 Plt Count 263 K/MM3 (134-434) 09/11/19 08:00 MPV 9.1 fl (7.5-11.1) 09/11/19 08:00 Sodium 141 mmol/L (136-145) 09/11/19 08:00 Potassium 4.1 mmol/L (3.5-5.1) 09/11/19 08:00 Chloride 106 mmol/L (98-107) 09/11/19 08:00 Carbon Dioxide 29 mmol/L (21-32) 09/11/19 08:00 Anion Gap 5 MMOL/L (8-16) L 09/11/19 08:00 BUN 14.1 mg/dL (7-18) 09/11/19 08:00 Creatinine 1.1 mg/dL (0.55-1.3) 09/11/19 08:00 Est GFR (CKD-EPI)AfAm 90.24 09/11/19 08:00 Est GFR (CKD-EPI)NonAf 77.86 09/11/19 08:00 Random Glucose 102 mg/dL (74-106) 09/11/19 08:00 Calcium 9.1 mg/dL (8.5-10.1) 09/11/19 08:00 Total Bilirubin 0.4 mg/dL (0.2-1) 09/11/19 08:00 AST 18 U/L (15-37) 09/11/19 08:00 ALT 23 U/L (13-61) 09/11/19 08:00 Alkaline Phosphatase 64 U/L (45-117) 09/11/19 08:00 Total Protein 6.5 g/dl (6.4-8.2) 09/11/19 08:00 Albumin 3.2 g/dl (3.4-5.0) L 09/11/19 08:00 lab noted Assessment: 09/11/19 10:13 alcohol withdrawal Plan: librium regimen
[2019-09-11] MEDS: IBUPROFEN 400 MG TABLET (FP) PO PRN (12:08)
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
[2019-09-11] MEDS: MELATONIN 5 MG TABLETS PO PRN (22:20)
[2019-09-11] MEDS: THIAMINE HCL 100 MG TABLET (FP) PO SCH (22:20)
[2019-09-11] MEDS: TAMSULOSIN HCL 0.4 MG CAP PO SCH (22:20)
[2019-09-12] MEDS: chlordiazePOXIDE 5 MG CAPSULE PO SCH ×3 (06:08→22:56)
[2019-09-12] MEDS ORDERED: TRIMETHOBENZAMIDE HCL 200MG/2ML INJ IM ONE (08:41)
--- NOTE | 2019-09-12 09:58 | PN ---
S CIWA - CIWA Score Nausea/Vomitin Muscle Tremors: 2 Anxiety: 2 Agitation: 1-Slight > Activity Paroxysmal Sweats: 1-Minimal Palms Moist Orientation: 0-Oriented Tacttile Disturbances: 0-None Auditory Disturbances: 0-None Visual Disturbances: 0-None Headache: 0-None Present CIWA-Ar Total Score: 9 BHS Progress Note (SOAP) Subjective: 49 years old male admitted on 09/10/19 for alcohol withdrawal sx management treating with librium detox regimen c/o vomiting since 3am tigan 200mg IM x 1 request gingle nishant discontinue motrin begin pepcid Objective: 09/12/19 09:59 Vital Signs Temperature 99.7 F H 09/12/19 09:10 Pulse Rate 105 H 09/12/19 09:10 Respiratory Rate 18 09/12/19 09:10 Blood Pressure 125/77 09/12/19 09:10 O2 Sat by Pulse Oximetry (%) Laboratory Last Values WBC 4.6 K/mm3 (4.0-10.0) 09/11/19 08:00 RBC 4.78 M/mm3 (4.00-5.60) 09/11/19 08:00 Hgb 13.8 GM/dL (11.7-16.9) 09/11/19 08:00 Hct 42.2 % (35.4-49) 09/11/19 08:00 MCV 88.3 fl (80-96) 09/11/19 08:00 MCH 28.8 pg (25.7-33.7) 09/11/19 08:00 MCHC 32.6 g/dl (32.0-35.9) 09/11/19 08:00 RDW 13.4 % (11.9-15.9) 09/11/19 08:00 Plt Count 263 K/MM3 (134-434) 09/11/19 08:00 MPV 9.1 fl (7.5-11.1) 09/11/19 08:00 Sodium 141 mmol/L (136-145) 09/11/19 08:00 Potassium 4.1 mmol/L (3.5-5.1) 09/11/19 08:00 Chloride 106 mmol/L (98-107) 09/11/19 08:00 Carbon Dioxide 29 mmol/L (21-32) 09/11/19 08:00 Anion Gap 5 MMOL/L (8-16) L 09/11/19 08:00 BUN 14.1 mg/dL (7-18) 09/11/19 08:00 Creatinine 1.1 mg/dL (0.55-1.3) 09/11/19 08:00 Est GFR (CKD-EPI)AfAm 90.24 09/11/19 08:00 Est GFR (CKD-EPI)NonAf 77.86 09/11/19 08:00 Random Glucose 102 mg/dL (74-106) 09/11/19 08:00 Calcium 9.1 mg/dL (8.5-10.1) 09/11/19 08:00 Total Bilirubin 0.4 mg/dL (0.2-1) 09/11/19 08:00 AST 18 U/L (15-37) 09/11/19 08:00 ALT 23 U/L (13-61) 09/11/19 08:00 Alkaline Phosphatase 64 U/L (45-117) 09/11/19 08:00 Total Protein 6.5 g/dl (6.4-8.2) 09/11/19 08:00 Albumin 3.2 g/dl (3.4-5.0) L 09/11/19 08:00 RPR Titer Nonreactive (NONREACTIVE) 09/11/19 08:00 lab noted Assessment: 09/12/19 09:59 alcohol withdrawal 09/12/19 09:59 health teaching on alcohol related GI insults Plan: librium regimen
[2019-09-12] MEDS ORDERED: DICYCLOMINE HCL 10 MG CAPSULE PO ONE (11:10)
[2019-09-12] MEDS: OXYBUTYNIN CHLORIDE 5 MG TABLET PO SCH (11:34)
[2019-09-12] MEDS: FAMOTIDINE 20 MG TABLET PO SCH ×2 (11:34→22:56)
[2019-09-12] MEDS: PRENATAL VITAMINS W/ FOLIC ACID TABLET (FP) PO SCH (11:34)
[2019-09-12] MEDS ORDERED: TRIMETHOBENZAMIDE HCL 200MG/2ML INJ IM PRN (17:35)
[2019-09-12] MEDS: MELATONIN 5 MG TABLETS PO PRN (22:56)
[2019-09-12] MEDS: TAMSULOSIN HCL 0.4 MG CAP PO SCH (22:56)
[2019-09-12] MEDS: THIAMINE HCL 100 MG TABLET (FP) PO SCH (22:56)
[2019-09-13] MEDS ORDERED: chlordiazePOXIDE HCL 10 MG CAPSULE PO PRN
[2019-09-13] MEDS: chlordiazePOXIDE HCL 10 MG CAPSULE PO SCH ×3 (05:15→22:23)
[2019-09-13] MEDS: PRENATAL VITAMINS W/ FOLIC ACID TABLET (FP) PO SCH (10:26)
[2019-09-13] MEDS: OXYBUTYNIN CHLORIDE 5 MG TABLET PO SCH (10:26)
[2019-09-13] MEDS: FAMOTIDINE 20 MG TABLET PO SCH ×2 (10:26→22:23)
--- NOTE | 2019-09-13 10:27 | PN ---
S CIWA - CIWA Score Nausea/Vomitin-No Nausea/No Vomiting Muscle Tremors: 2 Anxiety: 1-Mildly Anxious Agitation: 2 Paroxysmal Sweats: 1-Minimal Palms Moist Orientation: 0-Oriented Tacttile Disturbances: 0-None Auditory Disturbances: 0-None Visual Disturbances: 0-None Headache: 0-None Present CIWA-Ar Total Score: 6 BHS Progress Note (SOAP) Subjective: 49 years old male admitted on 09/10/19 for alcohol withdrawal sx management treating wtih librium detox regimen feeling better today less tremor slept through the night discuss aftercare with staff Objective: 09/13/19 10:27 Vital Signs Temperature 97.0 F L 09/13/19 09:26 Pulse Rate 108 H 09/13/19 09:26 Respiratory Rate 20 09/13/19 09:26 Blood Pressure 96/69 09/13/19 09:26 O2 Sat by Pulse Oximetry (%) Laboratory Last Values WBC 4.6 K/mm3 (4.0-10.0) 09/11/19 08:00 RBC 4.78 M/mm3 (4.00-5.60) 09/11/19 08:00 Hgb 13.8 GM/dL (11.7-16.9) 09/11/19 08:00 Hct 42.2 % (35.4-49) 09/11/19 08:00 MCV 88.3 fl (80-96) 09/11/19 08:00 MCH 28.8 pg (25.7-33.7) 09/11/19 08:00 MCHC 32.6 g/dl (32.0-35.9) 09/11/19 08:00 RDW 13.4 % (11.9-15.9) 09/11/19 08:00 Plt Count 263 K/MM3 (134-434) 09/11/19 08:00 MPV 9.1 fl (7.5-11.1) 09/11/19 08:00 Sodium 141 mmol/L (136-145) 09/11/19 08:00 Potassium 4.1 mmol/L (3.5-5.1) 09/11/19 08:00 Chloride 106 mmol/L (98-107) 09/11/19 08:00 Carbon Dioxide 29 mmol/L (21-32) 09/11/19 08:00 Anion Gap 5 MMOL/L (8-16) L 09/11/19 08:00 BUN 14.1 mg/dL (7-18) 09/11/19 08:00 Creatinine 1.1 mg/dL (0.55-1.3) 09/11/19 08:00 Est GFR (CKD-EPI)AfAm 90.24 09/11/19 08:00 Est GFR (CKD-EPI)NonAf 77.86 09/11/19 08:00 Random Glucose 102 mg/dL (74-106) 09/11/19 08:00 Calcium 9.1 mg/dL (8.5-10.1) 09/11/19 08:00 Total Bilirubin 0.4 mg/dL (0.2-1) 09/11/19 08:00 AST 18 U/L (15-37) 09/11/19 08:00 ALT 23 U/L (13-61) 09/11/19 08:00 Alkaline Phosphatase 64 U/L (45-117) 09/11/19 08:00 Total Protein 6.5 g/dl (6.4-8.2) 09/11/19 08:00 Albumin 3.2 g/dl (3.4-5.0) L 09/11/19 08:00 RPR Titer Nonreactive (NONREACTIVE) 09/11/19 08:00 lab noted Assessment: 09/13/19 10:27 alcohol withdrawal Plan: librum regimen
[2019-09-13] MEDS: METHOCARBAMOL 500 MG TABLET PO PRN ×2 (13:25→22:25)
[2019-09-13] MEDS: TAMSULOSIN HCL 0.4 MG CAP PO SCH (22:23)
[2019-09-13] MEDS: THIAMINE HCL 100 MG TABLET (FP) PO SCH (22:23)
[2019-09-13] MEDS: MELATONIN 5 MG TABLETS PO PRN (22:24)
[2019-09-14] MEDS ORDERED: chlordiazePOXIDE HCL 10 MG CAPSULE PO ONE (05:00)
[2019-09-14] MEDS: PRENATAL VITAMINS W/ FOLIC ACID TABLET (FP) PO SCH (09:03)
[2019-09-14] MEDS: FAMOTIDINE 20 MG TABLET PO SCH (09:03)
[2019-09-14] MEDS: OXYBUTYNIN CHLORIDE 5 MG TABLET PO SCH (09:03)
[2019-09-14 09:14] VITALS: BP 98/66; PULSE 104; TEMP 97
--- NOTE | 2019-09-14 11:01 | DS ---
[facility] Detox Discharge Summary Admission Date: 09/10/19 Discharge Date: 09/14/19 - History Present History: Alcohol Dependence, Cocaine Dependence Pertinent Past History: pt admitted for alcohol and cocaine use disorders. Pt did well here. Pt plans on going home today and will return for rehab- d/w pt options to keep safe and prevent relapse. Pt did not needs med- not taking. Will f/u with PCP - Physical Exam Results Vital Signs: Vital Signs Temperature 97.0 F L 09/14/19 09:13 Pulse Rate 104 H 09/14/19 09:13 Respiratory Rate 18 09/14/19 09:13 Blood Pressure 98/66 09/14/19 09:13 O2 Sat by Pulse Oximetry (%) - Treatment Hospital Course: Detox Protocol Followed, Detoxed Safely, Responded well, Discharged Condition Good, Rehab Referral Accepted - Medication Discharge Medications: Ambulatory Orders Armodafinil [Nuvigil] 200 mg PO DAILY 08/12/16 Oxybutynin Chloride [Ditropan -] 5 mg PO DAILY@1000 tablet 12/08/17 Ibuprofen [Motrin -] 800 mg PO TID PRN 03/11/19 Tamsulosin HCl [Flomax -] 0.4 mg PO HS 03/11/19 - Diagnosis (1) Alcohol dependence with uncomplicated withdrawal Status: Acute (2) BPH (benign prostatic hyperplasia) Status: Chronic Qualifiers: Lower urinary tract symptom detail: urinary frequency (3) Cocaine dependence, uncomplicated Status: Chronic (4) Narcolepsy Status: Chronic (5) Nicotine dependence Status: Chronic Qualifiers: Nicotine product type: cigarettes Substance use status: uncomplicated Qualified Code(s): F17.210 - Nicotine dependence, cigarettes, uncomplicated (6) History of seizure disorder Status: Suspected
== END 2019-09-14 09:25 | disposition home or self-care (01) | DRG 774 ==
LOC: YASAS 12:59 → Y3N 17:34
PROVIDERS: ADMIT Allergy & Immunology; ATTEND Allergy & Immunology
PROC: HZ2ZZZZ Detoxification Services for Substance Abuse Treatment (ICD-10-PCS; principal; 2019-09-10)
DX: F10.230 Alcohol dependence with withdrawal, uncomplicated (principal); F14.20 Cocaine dependence, uncomplicated; F17.210 Nicotine dependence, cigarettes, uncomplicated; N40.0 Benign prostatic hyperplasia without lower urinary tract symptoms; G47.419 Narcolepsy without cataplexy; G47.00 Insomnia, unspecified; Z86.69 Personal history of other diseases of the nervous system and sense organs; Z56.0 Unemployment, unspecified; Z59.0 Homelessness
CPT/HCPCS: 36415; 80053; 85027; 86593

== ENCOUNTER 2024-10-15 15:41 | Inpatient (IN) | payer OTHER ==
[2024-10-15 16:40] VITALS: BMI 26.9
[2024-10-15] MEDS ORDERED: chlordiazePOXIDE HCL 25 MG CAPSULE PO SCH (17:00)
[2024-10-15] MEDS ORDERED: LOPERAMIDE HCL 2 MG CAPSULE PO PRN (17:02)
[2024-10-15] MEDS ORDERED: POLYETHYLENE GLYCOL (HEALTHYLAX) 3350 17 GM PACKET PO PRN (17:02)
[2024-10-15] MEDS ORDERED: guaiFENesin 600 MG TABLET.ER (FP) PO PRN (17:02)
[2024-10-15] MEDS ORDERED: chlordiazePOXIDE HCL 25 MG CAPSULE PO PRN (17:02)
[2024-10-15] MEDS ORDERED: NICOTINE POLACRILEX 2 MG GUM BUC PRN (17:02)
[2024-10-15] MEDS ORDERED: BENZOCAINE/MENTHOL (CHLORASEPTIC ) LOZENGE MM PRN (17:02)
[2024-10-15] MEDS ORDERED: hydrOXYzine PAMOATE 25 MG CAPSULE (FP) PO PRN (17:02)
[2024-10-15] MEDS ORDERED: BISMUTH SUBSALICYLATE 524 MG/30 ML PO PRN (17:02)
[2024-10-15] MEDS ORDERED: ONDANSETRON *ODT* 4 MG TABLET SL PRN (17:02)
[2024-10-15] MEDS ORDERED: BENZONATATE 200 MG CAPSULE PO PRN (17:02)
[2024-10-15] MEDS ORDERED: NALOXONE (NARCAN) HCL 4 MG/0.1 ML SPRAY NS PRN (17:02)
[2024-10-15] MEDS ORDERED: IBUPROFEN 400 MG TABLET (FP) PO PRN (17:02)
[2024-10-15] MEDS ORDERED: ACETAMINOPHEN 325 MG TABLET (FP) PO PRN (17:02)
[2024-10-15] MEDS ORDERED: DICYCLOMINE HCL 10 MG CAPSULE PO PRN (17:02)
[2024-10-15] MEDS ORDERED: MAG HYDROX/AL HYDROX/SIMETH 30 ML UNIT-DOSE CUP PO PRN (17:02)
[2024-10-15] MEDS ORDERED: NALTREXONE HCL 50 MG TABLET PO ONE (18:00)
[2024-10-15] MEDS ORDERED: chlordiazePOXIDE HCL 25 MG CAPSULE ONE (20:22)
[2024-10-15] MEDS: chlordiazePOXIDE HCL 25 MG CAPSULE PO SCH (20:28)
[2024-10-15] MEDS: IBUPROFEN 600 MG TABLET (FP) PO PRN (21:05)
[2024-10-15] MEDS: NALTREXONE HCL 50 MG TABLET PO ONE (21:06)
[2024-10-15] MEDS: METHYL SALICYLATE/MENTHOL 30 GM TUBE TP SCH (22:20)
[2024-10-15] MEDS: GABAPENTIN 100 MG CAPSULE PO SCH (22:21)
[2024-10-15] MEDS: MELATONIN 5 MG TABLETS PO SCH (22:21)
[2024-10-15] MEDS: THIAMINE 100 MG TABLET PO SCH (22:21)
[2024-10-15] MEDS: TAMSULOSIN HCL 0.4 MG CAP PO SCH (22:21)
[2024-10-15] MEDS: MAGNESIUM HYDROX 2400MG/30ML ORAL SUSPENSION 30 ML CUP PO PRN (22:26)
[2024-10-16] MEDS: PRENATAL VITAMINS W/ FOLIC ACID TABLET (FP) PO SCH (10:20)
[2024-10-16] MEDS: OXYBUTYNIN CHLORIDE 5 MG TABLET PO SCH (10:28)
[2024-10-16] MEDS: NALTREXONE HCL 50 MG TABLET PO SCH (10:28)
[2024-10-16 11:23] LABS: CHLORIDE 106 mmol/L (98-107); POTASSIUM 4.1 mmol/L (3.5-5.1); SODIUM 140 mmol/L (136-145)
[2024-10-16 11:24] LABS: HEMATOCRIT 41.1 % (35.4-49); HEMOGLOBIN 13.2 GM/dL (11.7-16.9); MCH 28.5 pg (25.7-33.7); MEAN CELL VOLUME 89.1 fl (80-96); MEAN PLT VOLUME 8.6 fl (7.5-11.1); PLATELET COUNT 248 10^3/uL (134-434); RBC 4.61 M/mm3 (4.00-5.60); RDW 13.9 % (11.9-15.9); WHITE BLOOD COUNT 4.5 K/mm3 (4.0-10.0)
[2024-10-16 11:25] LABS: BLOOD UREA NITROGEN 15.9 mg/dL (7-18)
[2024-10-16 11:27] LABS: ALBUMIN 3.2 g/dl (3.4-5.0); ANION GAP 4 mmol/L (4-13); CO2 30 mmol/L (21-32); GLUCOSE,RANDOM 121 mg/dL (74-106)
[2024-10-16 11:30] LABS: CREATININE 0.9 mg/dL (0.55-1.3); SGOT/AST 14 U/L (15-37); SGPT/ALT 21 U/L (13-61)
[2024-10-16 11:31] LABS: BILIRUBIN,TOTAL 0.6 mg/dL (0.2-1)
[2024-10-16 11:32] LABS: TOT PROT 6.5 g/dl (6.4-8.2)
[2024-10-16 11:33] LABS: ALK PHOS 59 U/L (45-117)
[2024-10-17] MEDS: chlordiazePOXIDE HCL 25 MG CAPSULE PO SCH (05:51)
[2024-10-17] MEDS: OXYBUTYNIN CHLORIDE 5 MG TABLET PO SCH (07:41)
[2024-10-17] MEDS ORDERED: ARMODAFINIL 200 MG PO SCH (10:00)
[2024-10-17] MEDS: LIDOCAINE 5% TOPICAL PATCH TP SCH (10:19)
[2024-10-17] MEDS: LIDOCAINE PATCH REMOVAL MC SCH (22:15)
[2024-10-17] MEDS: TOLNAFTATE 1% CREAM 15 GM TUBE TP SCH (22:17)
[2024-10-18] MEDS ORDERED: chlordiazePOXIDE HCL 10 MG CAPSULE PO PRN
[2024-10-18] MEDS: chlordiazePOXIDE HCL 10 MG CAPSULE PO SCH (05:32)
[2024-10-18] MEDS: METHOCARBAMOL 500 MG TABLET PO PRN (10:33)
[2024-10-19] MEDS: chlordiazePOXIDE HCL 10 MG CAPSULE PO SCH (05:42)
[2024-10-20] MEDS: chlordiazePOXIDE HCL 10 MG CAPSULE PO ONE (06:00)
[2024-10-20 06:03] VITALS: BP 108/60; PULSE 90; RESP 16; TEMP 98.6
== END 2024-10-20 11:00 | disposition home or self-care (01) | DRG 774 ==
LOC: YASAS 15:41 → Y3N 20:06
PROVIDERS: ADMIT Allergy & Immunology; ATTEND Allergy & Immunology
PROC: HZ2ZZZZ Detoxification Services for Substance Abuse Treatment (ICD-10-PCS; principal; 2024-10-15)
DX: F10.230 Alcohol dependence with withdrawal, uncomplicated (principal); F14.10 Cocaine abuse, uncomplicated; F17.210 Nicotine dependence, cigarettes, uncomplicated; F32.A Depression, unspecified; G47.419 Narcolepsy without cataplexy; G47.00 Insomnia, unspecified; N40.1 Benign prostatic hyperplasia with lower urinary tract symptoms; N32.81 Overactive bladder; Z86.69 Personal history of other diseases of the nervous system and sense organs
CPT/HCPCS: 36415; 80053; 80305; 80307; 85027; 86780; 87491; 87591; 87661; 93005; 93010